=== PATIENT | male | born 1990 | race Caucasian/White ===

== ENCOUNTER 2018-01-10 15:36 | Inpatient (IN) | payer OTHER ==
[~2018-01-10] VITALS: Ht 172.7 cm; Wt 100.0 kg
[~2018-01-10 15:36] MED LIST: CEFAZOLIN INJ 2,000 MG in SODIUM CHLORIDE 0.9% INJ 100 ML IV SCH; DEXAMETHASONE SOD PHOS 4 MG/ML VIAL IV ONE; GLYCOPYRROLATE 1 MG/5 ML SYRINGE IV PUSH ONE; LIDOCAINE HCL 1% PF 5 ML SYRINGE OTHER ONE; MORPHINE SULFATE 4 MG/ML INJ IV PUSH ONE; ONDANSETRON HCL 4 MG/2 ML VIAL IV ONE; PHENYLEPH/NS 1000 MCG/10 ML SYR IV ONE; PROPOFOL 200 MG/20 ML AMP IV ONE; SUCCINYLCHOLINE CHLORIDE 100 MG/5 ML SYRINGE IV PUSH ONE; ceFAZolin INJ 1,000 MG VIAL IV ONE; ePHEDrine/NS 25 MG/5 ML SYRINGE IV ONE
[2018-01-10] MEDS ORDERED: IOHEXOL 350 MG/ML 10 ML VIAL (for RAD DIAG) IVCONTRAST ONE (15:37)
[2018-01-10] MEDS ORDERED: ceFAZolin 2 GM PREMIX 50 ML ONE (15:42)
[2018-01-10] MEDS ORDERED: PROPOFOL 500 MG/50 ML INJ 50 ML ONE (15:48)
[2018-01-10] MEDS ORDERED: LIDOCAINE HCL 1% PF 30 ML VIAL ONE (15:54)
[2018-01-10 16:00] VITALS: O2SAT 96
[2018-01-10 16:19] VITALS: O2SAT 98
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
[2018-01-10 16:40] VITALS: BP 108/55; PULSE 76; RESP 18; O2SAT 100; O2SAT 97
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
[2018-01-10 16:45] LABS: AUTOMATED NEUTROPHIL # 8.4 TH/MM3 (1.8-7.7); BASOPHIL % 0.2 % (0.0-2.0); EOSINOPHIL # 0.1 TH/MM3 (0-0.4); EOSINOPHIL % 0.8 % (0.0-4.0); HEMOGLOBIN 13.9 GM/DL (13.0-17.0); LYMPH % 29.5 % (9.0-44.0); LYMPHOCYTE # 3.9 TH/MM3 (1.0-4.8); MEAN CELL VOLUME 85.9 FL (80.0-100.0); MEAN CORPUSCULAR HEMOGLOBIN 29.9 PG (27.0-34.0); MEAN CORPUSCULAR HGB CONC 34.8 % (32.0-36.0); MEAN PLATELET VOLUME 9.5 FL (7.0-11.0); MONO % 6.2 % (0.0-8.0); MONOCYTE # 0.8 TH/MM3 (0-0.9); NEUT % 63.3 % (16.0-70.0); PLATELET COUNT 304 TH/MM3 (150-450); RED BLOOD COUNT 4.65 MIL/MM3 (4.50-5.90); RED CELL DISTRIBUTION WIDTH 13.2 % (11.6-17.2); WHITE BLOOD COUNT 13.3 TH/MM3 (4.0-11.0)
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
[2018-01-10 16:56] LABS: INTERNATIONAL NORMALIZED RATIO 1.1 RATIO; PROTHROMBIN TIME - PATIENT 11.4 SEC (9.8-11.6)
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
[2018-01-10] MEDS ORDERED: SODIUM CHLORIDE 0.9% FLUSH 10 ML FLUSH IV FLUSH PRN (17:30)
--- NOTE | 2018-01-10 17:41 | PD ---
Physical Exam Date Seen by Provider: Jan 10, 2018 Time Seen by Provider: 17:41 Narrative For full history and physical examination please see previous providers note. I was asked to repair laceration to patient's scalp. Data Data Last Documented VS Vital Signs Date Time Temp Pulse Resp B/P (MAP) Pulse Ox O2 Delivery O2 Flow Rate FiO2 01/10/18 16:19 98 15.00 01/10/18 16:00 100 Orders Orders Fentanyl Inj (Fentanyl Inj) (01/10/18 15:41) Type And Screen (01/10/18 15:42) Cefazolin 2 Gm Premix (Ancef 2 Gm Premix (01/10/18 15:42) Propofol 500 Mg/50 Ml Inj (Diprivan 500 (01/10/18 15:48) Lidocaine Pf 1% Inj (Xylocaine-Mpf 1% In (01/10/18 15:54) I-Stat Profile (01/10/18 15:45) Complete Blood Count With Diff (01/10/18 15:45) Prothrombin Time / Inr (Pt) (01/10/18 15:45) Act Partial Throm Time (Ptt) (01/10/18 15:45) Chest, Single Ap (01/10/18 15:45) Pelvis, Ap Only (Routine) (01/10/18 15:45) Ct Brain W/O Iv Contrast(Rout) (01/10/18 15:45) Ct Cerv Spine W/O Contrast (01/10/18 15:45) Ct Abd/Pel W Iv Contrast(Rout) (01/10/18 15:45) Ct Thorax/ Chest W Iv Contrast (01/10/18 15:45) Iv Access Insert/Monitor (01/10/18 15:45) Ecg Monitoring (01/10/18 15:45) Oximetry (01/10/18 15:45) Oxygen Administration (01/10/18 15:45) Humerus, One View (01/10/18 ) Forearm, One View (01/10/18 ) Elbow, One View (01/10/18 ) Femur, One View (01/10/18 ) Tibia/Fibula, One View (01/10/18 ) Iohexol 350 Inj (Omnipaque 350 Inj) (01/10/18 15:37) Red Blood Cells (Rbc) (01/10/18 15:39) Admit Order (Ed Use Only) (01/10/18 ) Labs Laboratory Tests Test 01/10/18 15:37 01/10/18 15:39 Bedside Hemoglobin 13.9 G/DL Bedside Hematocrit 41.0 % Bedside Sodium 144 MMOL/L Bedside Potassium 4.1 MMOL/L Bedside Chloride 106 MMOL/L Bedside Blood Urea Nitrogen 17 MG/DL Bedside Creatinine 1.2 MG/DL Bedside Glucose 124 MG/DL White Blood Count 13.3 TH/MM3 Red Blood Count 4.65 MIL/MM3 Hemoglobin 13.9 GM/DL Hematocrit 40.0 % Mean Corpuscular Volume 85.9 FL Mean Corpuscular Hemoglobin 29.9 PG Mean Corpuscular Hemoglobin Concent 34.8 % Red Cell Distribution Width 13.2 % Platelet Count 304 TH/MM3 Mean Platelet Volume 9.5 FL Neutrophils (%) (Auto) 63.3 % Lymphocytes (%) (Auto) 29.5 % Monocytes (%) (Auto) 6.2 % Eosinophils (%) (Auto) 0.8 % Basophils (%) (Auto) 0.2 % Neutrophils # (Auto) 8.4 TH/MM3 Lymphocytes # (Auto) 3.9 TH/MM3 Monocytes # (Auto) 0.8 TH/MM3 Eosinophils # (Auto) 0.1 TH/MM3 Basophils # (Auto) 0.0 TH/MM3 CBC Comment DIFF FINAL Differential Comment Prothrombin Time 11.4 SEC Prothromb Time International Ratio 1.1 RATIO Activated Partial Thromboplast Time 19.8 SEC [facility] Medical Record Reviewed: Yes Supervised Visit with PAUL: Yes Procedures Procedure Narrative LACERATION LOCATION: Forehead LENGTH: 4 cm NUMBER OF STITCHES/LIZZIE: 11 stitches REPAIR: The area of the laceration was prepped with Betadine and sterilely draped. The laceration was infiltrated with 1% lidocaine. The wound was copiously irrigated and explored without evidence of foreign body, tendon injury or neurovascular injury. The wound was closed using 4-0 Ethilon. This was a 1 layer repair. A sterile dressing was applied. The patient was advised to keep the dressing clean and dry. Patient tolerated the procedure well. Diagnosis Primary Impression: Femur fracture Narcisa Uriostegui [facility] Jan 10, 2018 17:41
[2018-01-10] MEDS ORDERED: SODIUM CHLOR 0.9% 1000 ML INJ 1,000 ML IV SCH (18:00)
[2018-01-10] MEDS ORDERED: ENALAPRILAT 1.25 MG/ML VIAL IV PUSH PRN (18:00)
[2018-01-10] MEDS ORDERED: ONDANSETRON HCL 4 MG/2 ML VIAL IV PUSH PRN (18:00)
[2018-01-10] MEDS ORDERED: MAGNESIUM HYDROXIDE SUSP 30 ML CUP PO PRN ×2 (18:00→21:45)
[2018-01-10] MEDS ORDERED: MORPHINE SULFATE 2 MG/ML SYRINGE IV PUSH PRN (18:00)
[2018-01-10] MEDS ORDERED: ACETAMINOPHEN/HYDROcodone 325 MG/5 MG TAB PO PRN ×2 (18:00)
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
[2018-01-10] MEDS: PANTOPRAZOLE SODIUM 40 MG VIAL IVP SCH (18:25)
[2018-01-10 18:32] VITALS: BP 112/74
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
[2018-01-10 18:45] VITALS: BP 126/69; PULSE 88; RESP 18; TEMP 97.7; O2SAT 99
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
[2018-01-10] MEDS ORDERED: GENTAMICIN SULFATE 80 MG/2 ML VIAL ONE ×2 (19:26→20:36)
[2018-01-10] MEDS ORDERED: ceFAZolin INJ 1,000 MG VIAL IV ONE (20:24)
[2018-01-10] MEDS ORDERED: METOPROLOL TARTRATE 25 MG TAB PO PRN (20:30)
[2018-01-10] MEDS ORDERED: POVIDONE IODINE 5% (ANTISEPSIS KIT) 4 APPLICATIONS EACH NARE PRN (20:30)
[2018-01-10] MEDS ORDERED: CHLORHEXIDINE GLUCONATE 2 % 1 PACK (2 CLOTHS) TOPICAL PRN (20:30)
[2018-01-10] MEDS ORDERED: LACTATED RINGER'S 1000 ML IV PRN (20:30)
[2018-01-10] MEDS ORDERED: SODIUM CHLORID 0.9% 500 ML IV PRN (20:30)
[2018-01-10] MEDS ORDERED: DOCUSATE SODIUM 100 MG CAP PO SCH (21:00)
[2018-01-10] MEDS ORDERED: CEFAZOLIN INJ 2,000 MG in SODIUM CHLORIDE 0.9% INJ 100 ML IV ONE (21:15)
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
[2018-01-10] MEDS ORDERED: DO NOT ADM ANY ANTICOAGULANT DRUGS PRN (21:44)
[2018-01-10] MEDS ORDERED: Post-op Orders (for Pharmacy) XX ONE (21:45)
[2018-01-10] MEDS ORDERED: ONDANSETRON HCL 4 MG/2 ML VIAL IVP PRN (21:45)
[2018-01-10] MEDS ORDERED: ACETAMINOPHEN/HYDROcodone 325 MG/10 MG TAB PO PRN ×2 (21:45)
[2018-01-10] MEDS ORDERED: MORPHINE SULFATE 8 MG/ML INJ IV PUSH PRN (21:45)
[2018-01-10] MEDS ORDERED: MORPHINE SULFATE 30 MG/30 ML PCA IV SCH (21:45)
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
[2018-01-10] MEDS: LACTATED RINGER'S 1000 ML INJ 1,000 ML IV SCH (22:00)
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
--- NOTE | 2018-01-10 22:47 | HHI.PR ---
Immediate Post Op Note Procedure Date: Jan 10, 2018 Pre Op Diagnosis: 1. Open fracture right proximal first metatarsal, grade 3c 2. Extensive degloving injury right plantar and medial foot Post Op Diagnosis: same Surgeon: Ria Tavares DPM Ribbing Machine Operator(s): Staff Procedure: Irrigation and debridement right foot open fracture Findings: Consistent with diagnosis. Extensive degloving of entire plantar foot from plantar 1st metatarsal head area to plantar medial heel, extending across entire plantar surface of foot with plantar fat pad entirely from plantar fascia. Major arteries preserved with palpable pedal pulses. Minimal debris noted, small gee flecks throughout. Excisional debridement of nonviable tendon, muscle, and subcutaneous tissue performed with rongeur, curette, and # 15 blade down to level of tendon and bone. All tissue appears viable at this time and bleeds readily. Fracture palpable/visible to medial base of 1st metatarsal area. Wound measurements approximately 18cm x 8 cm x 10cm depth, pocket to plantar foot. Irrigation with 6L normal saline with gentamicin, followed by approximation with 2-0 nylon suture, 4x4, abd x 3, cast padding, short posterior splint, nena bandage. Additional Information: Culture taken. Plan to OR again Monday p.m. for another wash out and culture. Possible wound vac dressing at next procedure. Will consider external fixation as definitive treatment to continue to monitor soft tissues as they demarcate to determine if foot will be salvageable. Complications: none Specimen(s) removed: 1. culture right foot Estimated blood loss: 50mL Anesthesia: General Drains: None IVF Tourniquet time (min at mmHg) 26 minutes right calf @250mmHg Patient to: PACU Patient Condition: Good Date/Time of Procedure: SEE SURGICAL CARE RECORD Ria Tavares DPM Jan 10, 2018 22:47
[2018-01-10] MEDS ORDERED: MORPHINE SULFATE 4 MG/ML INJ ONE (22:51)
[2018-01-11] VITALS: BP 131/74; PULSE 119; RESP 19; TEMP 98.2; O2SAT 98
[2018-01-11] MEDS ORDERED: ceFAZolin 2 GM PREMIX 50 ML IV SCH
[2018-01-11 04:00] VITALS: BP 143/70; PULSE 113; RESP 19; TEMP 98.2; O2SAT 98
[2018-01-11] MEDS: PCA - TOTAL MG MORPHINE DELIVERED PER SHIFT SCH ×2 (06:00→22:00)
[2018-01-11] MEDS: METHOCARBAMOL 500 MG TAB PO SCH ×3 (06:15→22:42)
[2018-01-11] MEDS ORDERED: MORPHINE SULFATE 8 MG/ML INJ IV PUSH PRN (06:15)
--- NOTE | 2018-01-11 06:27 | RADRPT ---
EXAM DATE/TIME: 01/11/2018 06:11 [facility] COMPARISON: CT THORAX W CONTRAST, January 10, 2018, 16:15. INDICATIONS : Shortness of breath. MEDICAL HISTORY : None. SURGICAL HISTORY : None. ENCOUNTER: Subsequent ACUITY: 2 days PAIN SCORE: 0/10 LOCATION: Bilateral chest FINDINGS: Right upper lobe consolidation/contusion appears at least slightly improved in the interim. Lungs oth erwise appear clear. No pleural effusion. No pneumothorax. Heart size stable, normal. CONCLUSION: Improved right upper lobe consolidation. Andrei Carey MD on January 11, 2018 at 6:25 Board Certified Radiologist. This report was verified electronically.
[2018-01-11 06:41] LABS: AUTOMATED NEUTROPHIL # 9.4 TH/MM3 (1.8-7.7); BASOPHIL % 0.1 % (0.0-2.0); HEMATOCRIT 26.2 % (39.0-51.0); LYMPH % 4.6 % (9.0-44.0); LYMPHOCYTE # 0.5 TH/MM3 (1.0-4.8); MEAN CELL VOLUME 86.2 FL (80.0-100.0); MEAN CORPUSCULAR HEMOGLOBIN 29.7 PG (27.0-34.0); MEAN CORPUSCULAR HGB CONC 34.5 % (32.0-36.0); MEAN PLATELET VOLUME 9.7 FL (7.0-11.0); MONO % 9.7 % (0.0-8.0); MONOCYTE # 1.1 TH/MM3 (0-0.9); NEUT % 85.6 % (16.0-70.0); PLATELET COUNT 213 TH/MM3 (150-450); RED BLOOD COUNT 3.04 MIL/MM3 (4.50-5.90); RED CELL DISTRIBUTION WIDTH 12.8 % (11.6-17.2)
[2018-01-11 07:19] LABS: AST (GOT) 74 U/L (15-37); CHLORIDE 109 MEQ/L (98-107); CREATININE 1.04 MG/DL (0.60-1.30); GLOMERULAR FILTRATION RATE 62 ML/MIN (>89); GLUCOSE,RANDOM 153 MG/DL (74-106); SODIUM (NA) 140 MEQ/L (136-145)
[2018-01-11 07:23] LABS: ALBUMIN 2.9 GM/DL (3.4-5.0); ALKALINE PHOSPHATASE 44 U/L (45-117); ALT (GPT) 31 U/L (12-78); BICARBONATE 22.5 MEQ/L (21.0-32.0); BLOOD UREA NITROGEN 11 MG/DL (7-18); CALCIUM 7.5 MG/DL (8.5-10.1); TOTAL BILIRUBIN ADULT 0.4 MG/DL (0.2-1.0); TOTAL PROTEIN 5.2 GM/DL (6.4-8.2)
[2018-01-11 08:00] VITALS: BP 113/69; PULSE 116; RESP 19; TEMP 98.4; O2SAT 98
[2018-01-11] MEDS: DOCUSATE SODIUM 50 MG/SENNA 8.6 MG TAB PO SCH ×2 (09:00→22:42)
[2018-01-11] MEDS ORDERED: DOCUSATE SODIUM 50 MG/SENNA 8.6 MG TAB PO SCH (09:00)
[2018-01-11] MEDS: LACTATED RINGER'S 1000 ML INJ 1,000 ML IV SCH ×2 (09:00→17:48)
[2018-01-11] MEDS: MULTIVITAMINS/MINERALS THERAPEUTIC TAB PO SCH (09:23)
[2018-01-11] MEDS: CALCIUM/VITAMIN D 250 MG/125 U TAB PO SCH ×3 (09:24→17:36)
[2018-01-11] MEDS: LIDOCAINE HCL 5% PATCH T-DERMAL SCH (09:28)
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
[2018-01-11 11:42] VITALS: BP 150/72; PULSE 116; RESP 19; TEMP 98.4; O2SAT 94
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
[2018-01-11] MEDS: PANTOPRAZOLE SODIUM 40 MG VIAL IVP SCH (17:36)
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
[2018-01-11 20:00] VITALS: BP 122/64; PULSE 110; RESP 18; TEMP 99.2; O2SAT 94
[2018-01-11] MEDS: REMOVE OLD LIDOCAINE PATCH T-DERMAL SCH (21:00)
--- NOTE | 2018-01-11 22:10 | PD.POD ---
Subjective Podiatric Problems s/p Right foot open fracture with degloving injury irrigation and debridement Dr Tavares Past Med/Surg/Social History Social History Smoking Status: Never Smoker Objective Vital Signs Vital Signs Date Time Temp Pulse Resp B/P (MAP) Pulse Ox O2 Delivery O2 Flow Rate FiO2 01/11/18 20:00 99.2 110 18 122/64 (83) 94 01/11/18 11:42 98.4 116 19 150/72 (98) 94 01/11/18 08:00 98.4 116 19 113/69 (84) 98 01/11/18 06:00 16 01/11/18 04:00 98.2 113 19 143/70 (94) 98 01/11/18 00:00 98.2 119 19 131/74 (93) 98 01/10/18 23:58 12 01/10/18 23:30 110 19 135/83 (100) 99 Nasal Cannula 2 01/10/18 23:15 111 19 124/84 (97) 99 Nasal Cannula 2 01/10/18 23:00 96 19 118/73 (88) 99 Nasal Cannula 2 01/10/18 22:45 97.6 103 15 121/71 (88) 99 Nasal Cannula 2 Coded Allergies: No Known Allergies (Unverified , 01/10/18) Exam-Podiatry Remarks Performed secondary survey to bilateral lower extremities. Neurovascularly intact bilaterally. No pain to leg/foot/ankle left. Ankle pain right, possibly referred pain. Assessment & Plan A/P s/p Right foot open fracture with degloving injury irrigation and debridement Dr Tavares To OR for repeat I&D tomorrow. NPO after [address] Right foot/ankle Ria Tavares DPM Jan 11, 2018 22:10
[2018-01-11] MEDS ORDERED: PHENOL 1.4% SOLN 180 ML BTL OROPHARYNG PRN (23:15)
[2018-01-11] MEDS ORDERED: ACETAMINOPHEN 325 MG TAB PO PRN (23:15)
[2018-01-12] VITALS (8 sets, daily range): BP systolic 113–135; BP diastolic 58–75; PULSE 95–119; RESP 16–20; TEMP 98.7–99.7; O2SAT 93–96
[2018-01-12] MEDS: LACTATED RINGER'S 1000 ML INJ 1,000 ML IV SCH ×3 (04:00→23:28)
[2018-01-12 05:04] LABS: HEMOGLOBIN 7.1 GM/DL (13.0-17.0)
[2018-01-12 05:27] LABS: HEMATOCRIT 20.8 % (39.0-51.0)
[2018-01-12] MEDS: METHOCARBAMOL 500 MG TAB PO SCH ×3 (06:44→21:00)
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
[2018-01-12] MEDS: LIDOCAINE HCL 5% PATCH T-DERMAL SCH (08:51)
[2018-01-12] MEDS: MULTIVITAMINS/MINERALS THERAPEUTIC TAB PO SCH (08:51)
[2018-01-12] MEDS: DOCUSATE SODIUM 50 MG/SENNA 8.6 MG TAB PO SCH ×2 (08:51→20:59)
[2018-01-12] MEDS: CALCIUM/VITAMIN D 250 MG/125 U TAB PO SCH ×3 (08:51→18:00)
[2018-01-12] MEDS ORDERED: LIDOCAINE HCL 1% PF 5 ML SYRINGE OTHER ONE (12:00)
[2018-01-12] MEDS ORDERED: ceFAZolin INJ 1,000 MG VIAL IV ONE (12:00)
[2018-01-12] MEDS ORDERED: PROPOFOL 200 MG/20 ML AMP IV ONE (12:00)
[2018-01-12] MEDS ORDERED: ONDANSETRON HCL 4 MG/2 ML VIAL IV ONE (12:00)
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
[2018-01-12] MEDS: ACETAMINOPHEN 1000 MG/100 ML 100 ML IV SCH ×3 (14:00→22:05)
[2018-01-12] MEDS: PCA - TOTAL MG MORPHINE DELIVERED PER SHIFT SCH ×3 (14:00→20:59)
[2018-01-12] MEDS: GABAPENTIN 300 MG CAP PO SCH ×2 (14:00→18:00)
[2018-01-12] MEDS: ENOXAPARIN SODIUM 30 MG/0.3 ML SYRINGE SQ SCH (14:40)
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
[2018-01-12] MEDS: ACETAMINOPHEN/HYDROcodone 325 MG/10 MG TAB PO PRN ×2 (15:36→23:15)
[2018-01-12] MEDS: PANTOPRAZOLE SODIUM 40 MG VIAL IVP SCH (17:30)
[2018-01-12] MEDS ORDERED: GENTAMICIN SULFATE 80 MG/2 ML VIAL ONE ×2 (20:28→20:34)
[2018-01-12] MEDS: REMOVE OLD LIDOCAINE PATCH T-DERMAL SCH ×2 (20:59→21:00)
--- NOTE | 2018-01-12 21:23 | HHI.PR ---
Immediate Post Op Note Procedure Date: Jan 12, 2018 Pre Op Diagnosis: 1. Open fracture right proximal first metatarsal, 2nd metatarsal, 3rd metatarsal , grade 3c 2. Extensive degloving injury right plantar and medial foot Post Op Diagnosis: Same Surgeon: Ria Tavares DPM [employer] Supervisor(s): Staff Procedure: Irrigation and debridement right foot open fracture Application wound vac Findings: Consistent with diagnosis. Extensive degloving of entire plantar foot from plantar 1st metatarsal head area to plantar medial heel, extending across entire plantar surface of foot with plantar fat pad entirely from plantar fascia. Some degloving noted to to medial rearfoot extending to medial achilles tendon area. Small patch of necrotic skin noted today just proximal to medial malleolus. Major arteries preserved with palpable pedal pulses. Capillary refill intact to entire flap and digits today. Very little residual debris noted, a few small gee flecks found. Appeared as through all debris removed today. Excisional debridement of nonviable tendon, muscle, and subcutaneous tissue performed with rongeur, curette, and #15 blade down to level of tendon and bone. All tissue appears viable at this time and bleeds readily. Fracture palpable/visible to medial base of 1st metatarsal area. Wound measurements approximately 18cm x 8 cm x 10cm depth, pocket to plantar foot. Irrigation with 9L normal saline with gentamicin, followed by approximation with 2-0 nylon suture, small granufoam wound vac, short posterior splint, nena bandage. Additional Information: 80mg Gentamicin IV 2g Ancef IV Culture taken. Plan to OR again Monday morning for another wash out and possible ORIF vs external fixation of metatarsal fractures/medial lisfranc fracture. Will likely continue wound vac. Soft tissues currently appear viable and limb salvageable. Complications: None Specimen(s) removed: 1. culture right foot Estimated blood loss: 50mL Anesthesia: General Drains: None, Other (wound vac) Tourniquet time (min at mmHg) n/a Patient to: PACU Patient Condition: Good Date/Time of Procedure: SEE SURGICAL CARE RECORD Ria Tavares DPM Jan 12, 2018 21:23
[2018-01-12] MEDS ORDERED: DO NOT ADM ANY ANTICOAGULANT DRUGS PRN (21:25)
[2018-01-12] MEDS ORDERED: MIDAZOLAM HCL 2 MG/2 ML VIAL ONE (21:27)
[2018-01-12] MEDS ORDERED: ceFAZolin 2 GM PREMIX 50 ML IV SCH (22:00)
[2018-01-12] MEDS ORDERED: *morphine SULFATE 4 MG/ML PERIprocedure ONLY ONE (22:08)
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
[2018-01-12] MEDS: diphenhydrAMINE HCL 25 MG CAP PO PRN (23:55)
[2018-01-13] VITALS (7 sets, daily range): BP systolic 114–142; BP diastolic 58–84; PULSE 88–102; RESP 16–18; TEMP 98.4–98.9; O2SAT 94–99
[2018-01-13] MEDS: ACETAMINOPHEN 1000 MG/100 ML 100 ML IV SCH ×3 (02:10→20:07)
[2018-01-13] MEDS: ENOXAPARIN SODIUM 30 MG/0.3 ML SYRINGE SQ SCH ×2 (02:25→15:00)
[2018-01-13] MEDS: ACETAMINOPHEN/HYDROcodone 325 MG/10 MG TAB PO PRN ×3 (02:47→11:05)
[2018-01-13] MEDS: PCA - TOTAL MG MORPHINE DELIVERED PER SHIFT SCH (04:53)
[2018-01-13] MEDS: ceFAZolin 2 GM PREMIX 50 ML IV SCH ×2 (04:53→13:00)
[2018-01-13] MEDS: GENTAMICIN INJ 80 MG in SODIUM CHLORIDE 0.9% INJ 100 ML IV SCH ×3 (04:53→21:05)
[2018-01-13] MEDS ORDERED: GENTAMICIN 80 MG PREMIX 100 ML IV SCH (05:00)
[2018-01-13 05:03] LABS: AUTOMATED NEUTROPHIL # 3.9 TH/MM3 (1.8-7.7); BASOPHIL % 0.1 % (0.0-2.0); EOSINOPHIL # 0.1 TH/MM3 (0-0.4); HEMATOCRIT 21.5 % (39.0-51.0); HEMOGLOBIN 7.3 GM/DL (13.0-17.0); LYMPHOCYTE # 1.5 TH/MM3 (1.0-4.8); MEAN CELL VOLUME 84.8 FL (80.0-100.0); MEAN CORPUSCULAR HEMOGLOBIN 28.8 PG (27.0-34.0); MEAN PLATELET VOLUME 9.1 FL (7.0-11.0); MONOCYTE # 0.7 TH/MM3 (0-0.9); NEUT % 62.9 % (16.0-70.0); PLATELET COUNT 128 TH/MM3 (150-450); RED BLOOD COUNT 2.54 MIL/MM3 (4.50-5.90); RED CELL DISTRIBUTION WIDTH 13.3 % (11.6-17.2); WHITE BLOOD COUNT 6.2 TH/MM3 (4.0-11.0)
[2018-01-13 05:27] LABS: BICARBONATE 31.9 MEQ/L (21.0-32.0); CALCIUM 7.5 MG/DL (8.5-10.1); CREATININE 0.82 MG/DL (0.60-1.30)
[2018-01-13] MEDS ORDERED: POVIDONE IODINE 5% (ANTISEPSIS KIT) 4 APPLICATIONS EACH NARE PRN ×2 (05:30→22:30)
[2018-01-13] MEDS ORDERED: CHLORHEXIDINE GLUCONATE 2 % 1 PACK (2 CLOTHS) TOPICAL PRN ×2 (05:30→22:30)
[2018-01-13] MEDS ORDERED: SODIUM CHLORID 0.9% 500 ML IV PRN ×2 (05:30→22:30)
[2018-01-13] MEDS ORDERED: LACTATED RINGER'S 1000 ML IV PRN ×2 (05:30→22:30)
[2018-01-13] MEDS: METHOCARBAMOL 500 MG TAB PO SCH ×4 (06:00→22:11)
[2018-01-13] MEDS ORDERED: SODIUM CHLOR 0.9% 250 ML INJ 250 ML IV ONE (06:15)
[2018-01-13] MEDS: GABAPENTIN 300 MG CAP PO SCH (07:48)
[2018-01-13] MEDS: DOCUSATE SODIUM 50 MG/SENNA 8.6 MG TAB PO SCH ×2 (07:48→20:11)
[2018-01-13] MEDS: CALCIUM/VITAMIN D 250 MG/125 U TAB PO SCH ×3 (07:48→18:00)
[2018-01-13] MEDS: MULTIVITAMINS/MINERALS THERAPEUTIC TAB PO SCH (07:49)
[2018-01-13] MEDS ORDERED: GENTAMICIN SULFATE 80 MG/2 ML VIAL ONE (08:03)
[2018-01-13] MEDS ORDERED: BUPIVACAINE/EPINEPHRINE 0.25% 50 ML VIAL ONE (08:10)
[2018-01-13] MEDS ORDERED: LIDOCAINE HCL 1% PF 5 ML SYRINGE OTHER ONE (12:00)
[2018-01-13] MEDS ORDERED: ONDANSETRON HCL 4 MG/2 ML VIAL IV ONE (12:00)
[2018-01-13] MEDS ORDERED: DEXAMETHASONE SOD PHOS 4 MG/ML VIAL IV ONE (12:00)
[2018-01-13] MEDS ORDERED: PROPOFOL 200 MG/20 ML AMP IV ONE (12:00)
[2018-01-13] MEDS ORDERED: LACTATED RINGER'S 1000 ML INJ 1,000 ML IV ONE (12:00)
[2018-01-13] MEDS ORDERED: *morphine SULFATE 4 MG/ML PERIprocedure ONLY ONE (12:53)
[2018-01-13] MEDS: GABAPENTIN 400 MG CAP PO SCH ×2 (13:00→18:00)
--- NOTE | 2018-01-13 14:32 | PD.POD ---
Subjective Podiatric Problems s/p Right foot open fracture with degloving injury irrigation and debridement Dr Tavares s/p Right foot open fracture with degloving injury irrigation and debridement Dr Tavares Patient down for OR with ortho now and not in room Past Med/Surg/Social History Social History Smoking Status: Never Smoker Objective Vital Signs Vital Signs Date Time Temp Pulse Resp B/P (MAP) Pulse Ox O2 Delivery O2 Flow Rate FiO2 01/13/18 12:45 98.1 96 16 125/72 (89) 95 01/13/18 12:45 Nasal Cannula 3 01/13/18 09:15 98.7 95 16 125/68 99 01/13/18 09:00 98.8 94 18 129/58 95 01/13/18 08:00 98.8 94 18 129/58 (81) 95 01/13/18 07:31 Nasal Cannula 4.00 01/13/18 04:00 98.4 90 18 114/63 (80) 98 01/13/18 00:15 98.4 102 18 122/58 (79) 97 01/12/18 22:45 98.5 102 16 134/69 (90) 97 Nasal Cannula 4 01/12/18 22:30 103 17 138/71 (93) 96 Nasal Cannula 4 01/12/18 22:15 102 17 140/75 (96) 96 Nasal Cannula 4 01/12/18 22:00 101 16 154/83 (106) 100 Simple Mask 6 01/12/18 21:45 101 16 150/81 (104) 99 Simple Mask 6 01/12/18 21:30 103 16 149/77 (101) 97 Simple Mask 6 01/12/18 21:23 99.8 103 20 140/74 (96) 98 Simple Mask 8 01/12/18 16:00 99.5 105 16 133/72 (92) 96 Coded Allergies: No Known Allergies (Unverified , 01/10/18) Other Results Microbiology Date/Time Source Procedure Growth Status 01/12/18 20:58 Wound Foot Fungal Smear - Final NO FUNGAL ELEMENTS SEEN. Resulted 01/12/18 20:58 Wound Foot Fungal Culture Pending Resulted Operative cultures from 01/10 and 01/12 show no growth so far. Assessment & Plan A/P s/p Right foot open fracture with degloving injury irrigation and debridement Dr Tavares s/p right foot open fracture with degloving injury irrigation and debridement Dr Tavares To OR repeat I&D right foot with ORIF right foot vs external fixation right foot vs both tomorrow [address] external fixator to reduce any motion of flap during as to not disturb healing during patient transfers/PT/etc. NPO after midnight tonight Right nondisplaced medial malleolus fracture Nonweightbearing right lower extremity Will be in short posterior splint for extended period of time Ria Tavares DPM Jan 13, 2018 14:32
[2018-01-13 15:01] LABS: AUTOMATED NEUTROPHIL # 5.9 TH/MM3 (1.8-7.7); BASOPHIL % 0.1 % (0.0-2.0); EOSINOPHIL # 0.2 TH/MM3 (0-0.4); EOSINOPHIL % 2.4 % (0.0-4.0); HEMOGLOBIN 8.9 GM/DL (13.0-17.0); LYMPH % 18.7 % (9.0-44.0); LYMPHOCYTE # 1.6 TH/MM3 (1.0-4.8); MEAN CELL VOLUME 85.2 FL (80.0-100.0); MEAN CORPUSCULAR HEMOGLOBIN 30.2 PG (27.0-34.0); MEAN CORPUSCULAR HGB CONC 35.4 % (32.0-36.0); MONO % 8.7 % (0.0-8.0); MONOCYTE # 0.7 TH/MM3 (0-0.9); NEUT % 70.1 % (16.0-70.0); PLATELET COUNT 157 TH/MM3 (150-450); RED BLOOD COUNT 2.94 MIL/MM3 (4.50-5.90); RED CELL DISTRIBUTION WIDTH 13.1 % (11.6-17.2); WHITE BLOOD COUNT 8.4 TH/MM3 (4.0-11.0)
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
[2018-01-13] MEDS ORDERED: BUPIVACAINE HCL PF 0.25% 30 ML VIAL ONE (15:57)
[2018-01-13] MEDS ORDERED: MIDAZOLAM HCL 2 MG/2 ML VIAL ONE (16:57)
--- NOTE | 2018-01-13 17:34 | RADRPT ---
EXAM DATE/TIME: 01/13/2018 16:49 [facility] COMPARISON: No previous studies available for comparison. INDICATIONS : ORIF left hand, 1st metacarpal. MEDICAL HISTORY : None. SURGICAL HISTORY : None. ENCOUNTER: Subsequent ACUITY: 1 day PAIN SCORE: Non-responsive. LOCATION: Left Hand, 1st metacarpal. FINDINGS: Examination of the first digit of the left hand demonstrates screw fixation of the proximal first met acarpal. Normal alignment. No complications identified. CONCLUSION: 1. Screw fixation of proximal first metacarpal. Jordan Ramirez MD on January 13, 2018 at 17:30 Board Certified Radiologist. This report was verified electronically.
[2018-01-13] MEDS ORDERED: DO NOT ADM ANY ANTICOAGULANT DRUGS PRN (17:45)
--- NOTE | 2018-01-13 19:26 | PD.OP ---
cc: Дмитрий Deal Jr., MD Operative Report Date of Surgery: Jan 13, 2018 Preoperative Diagnosis: Left Cohen intra-articular fracture of the base of the first metacarpal. Postoperative Diagnosis: Same Procedure: Open reduction internal fixation left first metacarpal Anesthesia: General Surgeon: Дмитрий Deal Dietetic Tech(s): CAROLINA Holden The surgical procedure was assisted by my Advanced Registered Nurse Practitioner. My CLOTH PRINTING INSPECTOR presence was necessary throughout this case for the manipulation and positioning of the surgical extremity. My CLOTH PRINTING INSPECTOR was assisting me throughout the duration of this procedure. The skill set of an Advance Registered Nurse Practitioner was medically necessary to complete this procedure. During the surgical case, the surgical orderly was working at the back table and the Advance Registered Nurse Practitioner was directly assisting me. Resident Surgeon: None Operation and Findings: INDICATION FOR PROCEDURE Patient was seen and evaluated preoperatively and found to have a LEFT intra- articular closed displaced fracture of the base of the first metacarpal Cohen type. Disciussion of risk and benefits including nunion, avascular necrosis, bleeding, infection, injury to arteries, nerves, and blood vessels, weakness and numbness of hand, and tendon rupture. Informed consent was obtained. Patient received IV antibiotics prior to incision. Timeout procedure was performed. Operative extremity was prepped with alcohol followed by Hibiclens and draped usual sterile fashion and placed on an arm table. Patient position supine. A volar approach to the CMC joint was used. A hockey- stick shaped incision. Sharp dissection taken down through the skin and subcutaneous tissue identifying and protecting the digital neurovascular bundle and collateral ligament. Arthrotomy was performed to allow direct reduction of the articular surface. The Fracture was identified and bone fragments were cleaned. Pointed reduction clamp was used to reduce the fracture and this was confirmed under fluoroscopy. A K wire was used to temporarily maintain fixation. After adequate reduction was confirmed under fluoroscopy the fracture was fixed with 2 x 2.0 millimeter screws in lag screw fashion. Placement of the screw was confirmed by live fluoroscopy. Direct visualization of the articular surface confirmed adequate reduction, congruency and compression at the articular surface. Tourniquet was released. Wound was thoroughly irrigated. The capsule was closed with 4-0 Vicryl. The wound was closed with 3- 0 Vicryl and 2-0 nylon at the skin. Sterile dressing was applied and the patient was placed in a well-padded thumb spica splint. He will be converted to a thumb spica cast on the floor in 1-2 days. There were no complications. Patient extubated and transferred to PACU in stable condition. POSTP-OP PLAN OF ACTIVITY Antibiotics: ancef Antiocoagulation: None Weight bearing status: NWB in splint. Dressing: Do not remove splints Dispo: will follow Дмитрий Deal Jr., MD Jan 13, 2018 19:26
[2018-01-13] MEDS ORDERED: ONDANSETRON HCL 4 MG/2 ML VIAL IV PUSH PRN (19:30)
[2018-01-13] MEDS ORDERED: KETOROLAC TROMETHAMINE 30 MG/ML (IVP) VIAL IVP ONE (19:30)
[2018-01-13] MEDS ORDERED: MORPHINE SULFATE 8 MG/ML INJ IV PUSH PRN (19:30)
[2018-01-13] MEDS ORDERED: SODIUM CHLORIDE 0.9% FLUSH 10 ML FLUSH IV FLUSH PRN (19:30)
[2018-01-13] MEDS ORDERED: ZOLPIDEM TARTRATE 5 MG TAB PO PRN (19:30)
[2018-01-13] MEDS: SODIUM CHLORIDE 0.9% FLUSH 10 ML FLUSH IV FLUSH SCH (20:11)
[2018-01-13] MEDS: REMOVE OLD LIDOCAINE PATCH T-DERMAL SCH (20:11)
[2018-01-13] MEDS: DOCUSATE SODIUM 100 MG CAP PO SCH (20:11)
[2018-01-13] MEDS ORDERED: INSULIN HUMAN REGULAR 1,000 UNITS/10 ML VIAL SQ PRN (22:30)
[2018-01-13] MEDS ORDERED: METOPROLOL TARTRATE 25 MG TAB PO PRN (22:30)
[2018-01-14] MEDS: diphenhydrAMINE HCL 25 MG CAP PO PRN
[2018-01-14 01:05] VITALS: BP 131/86; PULSE 90; RESP 15; TEMP 97.9; O2SAT 94
[2018-01-14] MEDS: ACETAMINOPHEN 1000 MG/100 ML 100 ML IV SCH ×4 (02:15→20:47)
[2018-01-14 03:45] VITALS: BP 120/71; PULSE 75; RESP 17; TEMP 97.9; O2SAT 98
[2018-01-14] MEDS: oxyCODONE/ACETAMINOPHEN 5 MG/325 MG TAB PO PRN ×4 (03:57→21:41)
[2018-01-14 04:19] LABS: AUTOMATED NEUTROPHIL # 7.4 TH/MM3 (1.8-7.7); BASOPHIL % 0.1 % (0.0-2.0); EOSINOPHIL % 0.1 % (0.0-4.0); HEMATOCRIT 26.7 % (39.0-51.0); HEMOGLOBIN 9.3 GM/DL (13.0-17.0); LYMPHOCYTE # 0.7 TH/MM3 (1.0-4.8); MEAN CORPUSCULAR HEMOGLOBIN 29.7 PG (27.0-34.0); MEAN PLATELET VOLUME 8.8 FL (7.0-11.0); MONO % 7.5 % (0.0-8.0); MONOCYTE # 0.7 TH/MM3 (0-0.9); NEUT % 84.3 % (16.0-70.0); PLATELET COUNT 179 TH/MM3 (150-450); RED BLOOD COUNT 3.14 MIL/MM3 (4.50-5.90); RED CELL DISTRIBUTION WIDTH 13.7 % (11.6-17.2); WHITE BLOOD COUNT 8.8 TH/MM3 (4.0-11.0)
[2018-01-14 04:39] LABS: BICARBONATE 29.9 MEQ/L (21.0-32.0); CALCIUM 7.9 MG/DL (8.5-10.1); CREATININE 0.7 MG/DL (0.60-1.30)
[2018-01-14] MEDS: GENTAMICIN INJ 80 MG in SODIUM CHLORIDE 0.9% INJ 100 ML IV SCH ×3 (05:00→21:42)
--- NOTE | 2018-01-14 05:37 | RADRPT ---
EXAM DATE/TIME: 01/14/2018 04:27 [facility] COMPARISON: CHEST SINGLE AP, January 11, 2018, 6:11. INDICATIONS : Pulmonary contusion. MEDICAL HISTORY : None. SURGICAL HISTORY : Tonsillectomy. ENCOUNTER: Subsequent ACUITY: 4 - 6 days PAIN SCORE: 0/10 LOCATION: Bilateral chest FINDINGS: A single view of the chest demonstrates the lungs to be symmetrically aerated without evidence of mas s, infiltrate or effusion. The cardiomediastinal contours are unremarkable. Osseous structures are intact. CONCLUSION: No acute disease. Jovanni Stevneson Jr., MD on January 14, 2018 at 5:35 Board Certified Radiologist. This report was verified electronically.
[2018-01-14] MEDS: METHOCARBAMOL 500 MG TAB PO SCH ×3 (06:00→20:47)
[2018-01-14] MEDS ORDERED: GENTAMICIN SULFATE 80 MG/2 ML VIAL ONE ×2 (07:47→08:37)
[2018-01-14 08:00] VITALS: BP 132/60; PULSE 89; RESP 16; TEMP 98.2; O2SAT 100
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
[2018-01-14] MEDS ORDERED: ceFAZolin INJ 1,000 MG VIAL IV ONE ×2 (08:23→12:00)
[2018-01-14] MEDS: DOCUSATE SODIUM 50 MG/SENNA 8.6 MG TAB PO SCH ×2 (09:00→20:47)
[2018-01-14] MEDS: DOCUSATE SODIUM 100 MG CAP PO SCH ×2 (09:00→20:47)
[2018-01-14] MEDS: LIDOCAINE HCL 5% PATCH T-DERMAL SCH (09:00)
[2018-01-14] MEDS: MULTIVITAMINS/MINERALS THERAPEUTIC TAB PO SCH (09:00)
[2018-01-14] MEDS: GABAPENTIN 400 MG CAP PO SCH ×3 (09:00→16:26)
[2018-01-14] MEDS: SODIUM CHLORIDE 0.9% FLUSH 10 ML FLUSH IV FLUSH SCH ×2 (09:00→20:47)
[2018-01-14] MEDS: CALCIUM/VITAMIN D 250 MG/125 U TAB PO SCH ×3 (09:00→16:26)
[2018-01-14] MEDS ORDERED: BUPIVACAINE HCL PF 0.25% 30 ML VIAL ONE (10:29)
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
[2018-01-14] MEDS ORDERED: MIDAZOLAM HCL 2 MG/2 ML VIAL ONE (11:22)
[2018-01-14] MEDS ORDERED: MORPHINE SULFATE 4 MG/ML INJ ONE (11:22)
[2018-01-14 12:00] VITALS: BP 137/79; PULSE 89; RESP 16; TEMP 98; O2SAT 98
[2018-01-14] MEDS ORDERED: PROPOFOL 200 MG/20 ML AMP IV ONE (12:00)
[2018-01-14] MEDS ORDERED: ROCURONIUM INJ 50 MG/5 ML SYRINGE IV PUSH ONE (12:00)
[2018-01-14] MEDS ORDERED: LACTATED RINGER'S 1000 ML INJ 2,000 ML IV ONE (12:00)
[2018-01-14] MEDS ORDERED: SUCCINYLCHOLINE CHLORIDE 100 MG/5 ML SYRINGE IV PUSH ONE (12:00)
[2018-01-14] MEDS ORDERED: ONDANSETRON HCL 4 MG/2 ML VIAL IV ONE (12:00)
[2018-01-14] MEDS ORDERED: DEXAMETHASONE SOD PHOS 4 MG/ML VIAL IV ONE (12:00)
--- NOTE | 2018-01-14 12:05 | HHI.PR ---
Immediate Post Op Note Procedure Date: Jan 14, 2018 Pre Op Diagnosis: 1. Open fracture right proximal first metatarsal, 2nd metatarsal, 3rd metatarsal , grade 3c 2. Extensive degloving injury right plantar and medial foot Post Op Diagnosis: Same Surgeon: Ria Tavares DPM Manager Pest(s): Staff Procedure: 1. Irrigation and debridement right foot open fracture 2. ORIF right 1st metatarsal fracture 3. Complex closure of degloving injury right foot with amniofix graft Findings: Consistent with diagnosis. Extensive degloving of entire plantar foot from plantar 1st metatarsal head area to plantar medial heel, extending across entire plantar surface of foot with plantar fat pad entirely from plantar fascia. Some degloving noted to to medial rearfoot extending to medial achilles tendon area. Fracture palpable/visible to medial base of 1st metatarsal area. C-arm utilized to reduce fracture and fixate with synthes locking plate/screws. Stressed lisfranc joint under c-arm and appears stable. Fractures to 2nd and 3rd metatarsal bases appear in acceptable alignment and left to heal nonoperatively. Small patch of necrotic skin remains just proximal to medial malleolus. No sign of infection present. There was large superficial blister noted to lateral calcaneus area with serous drainage. Deroofed bulla. No sign of infection. No devitalization of tissue present in that area. Major arteries preserved with palpable pedal pulses. Capillary refill intact to entire flap and digits today. No residual debris noted today. Irrigated with 9L normal saline with gentamicin. Made wound edges acute and graduated complex closure achieved with # 1 nylon and 2-0 nylon suture with amniofix 4cm x 6cm graft and amniofill graft in plantar wound prior to delayed primary closure. Wound measurements approximately 18cm x 8 cm x 10cm depth, pocket to plantar foot. Additional Information: Nonweightbearing right lower extremity in splint Keep dressing clean, dry, intact x 7 days. Weekly dressing change with xeroform, 4x4, abd, soft roll, nena with posterior splint reapplied. Will need to follow up in clinic in 1 week after discharge [address] Dr Tavares. Podiatry will change bandage prior to discharge. Continue IV antibiotics until discharge Complications: None Specimen(s) removed: none Estimated blood loss: 50mL Anesthesia: General, Local (30mL 0.5% marcaine plain) Drains: None IVF Tourniquet time (min at mmHg) No tourniquet utilized Patient to: PACU Patient Condition: Good Implant/Devices: SEE IMPLANT LOG (if applicable) Date/Time of Procedure: SEE SURGICAL CARE RECORD Ria Tavares DPM Jan 14, 2018 12:05
--- NOTE | 2018-01-14 12:32 | RADRPT ---
EXAM DATE/TIME: 01/14/2018 12:43 [place] COMPARISON: CT FOOT RIGHT W/O CONTRAST, January 12, 2018, 10:55. FOOT RIGHT COMPLETE ([id number]), January 14, 2018, 10 :00. INDICATIONS : Post operative for first metatarsal plate placement. MEDICAL HISTORY : None. SURGICAL HISTORY : None. ENCOUNTER: Initial ACUITY: 1 day PAIN SCORE: Non-responsive. LOCATION: Right foot. FINDINGS: Local views of the right foot were obtained and are AP and oblique in nature. This demonstrates place ment of a screw plate fixation device along the proximal first metatarsal with the fracture fragments now in anatomic alignment. Fine bony detail is partially obscured by casting material. There is a kwon btle nondisplaced fracture through the base of the second metatarsal. CONCLUSION: Status post open rigid internal fixation. Andrew Obrien MD on January 14, 2018 at 12:28 Board Certified Radiologist. This report was verified electronically.
--- NOTE | 2018-01-14 13:56 | OTSOAPIP ---
RECEIVED OCCUPATIONAL THERAPY ORDER. PATIENT OFF FLOOR FOR SURGERY. WILL FOLLOW UP WITH PATIENT TOMORROW. INTERDISCIPLINARY COMMUNICATION: REVIEWED ELECTRONIC MEDICAL RECORD Therapist: Montse Kapoor OTR/L Signature on file
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
[2018-01-14] MEDS ORDERED: LACTULOSE SYRUP 20 GM/30 ML CUP PO ONE (15:45)
[2018-01-14] MEDS: ENOXAPARIN SODIUM 30 MG/0.3 ML SYRINGE SQ SCH (16:24)
[2018-01-14 19:12] VITALS: BP 149/89; PULSE 93; RESP 16; TEMP 98; O2SAT 99
[2018-01-14] MEDS: REMOVE OLD LIDOCAINE PATCH T-DERMAL SCH (20:48)
[2018-01-15 00:11] VITALS: BP 131/72; PULSE 76; RESP 16; TEMP 98.6; O2SAT 97
[2018-01-15] MEDS: ACETAMINOPHEN 1000 MG/100 ML 100 ML IV SCH ×2 (02:02→08:43)
[2018-01-15] MEDS: oxyCODONE/ACETAMINOPHEN 5 MG/325 MG TAB PO PRN ×4 (02:10→15:18)
[2018-01-15 04:18] VITALS: BP 137/90; PULSE 80; RESP 18; TEMP 97.5; O2SAT 99
[2018-01-15] MEDS: GENTAMICIN INJ 80 MG in SODIUM CHLORIDE 0.9% INJ 100 ML IV SCH ×3 (04:53→21:12)
[2018-01-15] MEDS: METHOCARBAMOL 500 MG TAB PO SCH ×3 (04:54→21:12)
[2018-01-15 08:00] VITALS: BP 148/92; PULSE 70; RESP 18; TEMP 97.2; O2SAT 100
[2018-01-15] MEDS: CALCIUM/VITAMIN D 250 MG/125 U TAB PO SCH ×3 (08:42→17:44)
[2018-01-15] MEDS: DOCUSATE SODIUM 100 MG CAP PO SCH (08:42)
[2018-01-15] MEDS: GABAPENTIN 400 MG CAP PO SCH ×3 (08:42→17:32)
[2018-01-15] MEDS: DOCUSATE SODIUM 50 MG/SENNA 8.6 MG TAB PO SCH ×2 (08:42→20:24)
[2018-01-15] MEDS: MULTIVITAMINS/MINERALS THERAPEUTIC TAB PO SCH (08:42)
[2018-01-15] MEDS: LIDOCAINE HCL 5% PATCH T-DERMAL SCH ×2 (08:43→09:00)
[2018-01-15] MEDS: SODIUM CHLORIDE 0.9% FLUSH 10 ML FLUSH IV FLUSH SCH ×2 (08:44→20:28)
[2018-01-15 12:00] VITALS: BP 137/80; PULSE 90; RESP 18; TEMP 98.3; O2SAT 95
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
[2018-01-15 16:00] VITALS: BP 133/79; PULSE 82; RESP 18; TEMP 97.5; O2SAT 96
[2018-01-15] MEDS ORDERED: ACETAMIN 325 MG/BUTALBITAL 50 MG/CAFFEINE 40 MG TAB PO PRN (16:45)
[2018-01-15] MEDS ORDERED: oxyCODONE/ACETAMINOPHEN 5 MG/325 MG TAB PO PRN (17:00)
[2018-01-15] MEDS: ACETAMINOPHEN/HYDROcodone 325 MG/10 MG TAB PO PRN ×3 (17:32→23:12)
[2018-01-15] MEDS: ENOXAPARIN SODIUM 30 MG/0.3 ML SYRINGE SQ SCH ×3 (17:33→20:26)
[2018-01-15] MEDS: REMOVE OLD LIDOCAINE PATCH T-DERMAL SCH (21:00)
[2018-01-15 22:14] VITALS: BP 124/74; PULSE 95; RESP 16; TEMP 98.4; O2SAT 93
[2018-01-16 02:17] VITALS: BP 135/52; PULSE 108; RESP 16; TEMP 97.8; O2SAT 91
[2018-01-16 05:13] LABS: HEMATOCRIT 23.1 % (39.0-51.0)
[2018-01-16 05:29] VITALS: BP 129/72; PULSE 95; RESP 16; TEMP 98.9; O2SAT 91
[2018-01-16] MEDS: ACETAMINOPHEN/HYDROcodone 325 MG/10 MG TAB PO PRN ×5 (06:13→20:26)
[2018-01-16] MEDS: METHOCARBAMOL 500 MG TAB PO SCH ×3 (06:13→20:26)
[2018-01-16] MEDS: GENTAMICIN INJ 80 MG in SODIUM CHLORIDE 0.9% INJ 100 ML IV SCH (06:14)
[2018-01-16 08:00] VITALS: BP 124/83; PULSE 94; RESP 16; TEMP 97.3; O2SAT 91
[2018-01-16] MEDS: LACTULOSE SYRUP 20 GM/30 ML CUP PO SCH (09:00)
[2018-01-16] MEDS: GABAPENTIN 400 MG CAP PO SCH ×3 (09:13→18:01)
[2018-01-16] MEDS: MULTIVITAMINS/MINERALS THERAPEUTIC TAB PO SCH (09:13)
[2018-01-16] MEDS: ENOXAPARIN SODIUM 30 MG/0.3 ML SYRINGE SQ SCH ×2 (09:13→20:24)
[2018-01-16] MEDS: CALCIUM/VITAMIN D 250 MG/125 U TAB PO SCH ×3 (09:13→18:01)
[2018-01-16] MEDS: SODIUM CHLORIDE 0.9% FLUSH 10 ML FLUSH IV FLUSH SCH ×2 (09:14→21:00)
[2018-01-16] MEDS: DOCUSATE SODIUM 50 MG/SENNA 8.6 MG TAB PO SCH ×2 (09:14→20:25)
[2018-01-16] MEDS: LIDOCAINE HCL 5% PATCH T-DERMAL SCH (09:14)
[2018-01-16 12:00] VITALS: BP 149/91; PULSE 99; RESP 16; TEMP 97.8; O2SAT 97
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
--- NOTE | 2018-01-16 14:44 | PD.POD ---
Subjective Podiatric Problems s/p Right foot laceration closure and first met ORIF, with . Pt complains of bandages feeling tight, but otherwise he feels well. No n/v/f/h/c/ sob. Past Med/Surg/Social History Social History Smoking Status: Never Smoker Objective Vital Signs Vital Signs Date Time Temp Pulse Resp B/P (MAP) Pulse Ox O2 Delivery O2 Flow Rate FiO2 01/16/18 12:00 97.8 99 16 149/91 (110) 97 01/16/18 08:00 97.3 94 16 124/83 (97) 91 01/16/18 05:29 98.9 95 16 129/72 (91) 91 01/16/18 02:17 97.8 108 16 135/52 (79) 91 01/15/18 22:14 98.4 95 16 124/74 (91) 93 01/15/18 16:00 97.5 82 18 133/79 (97) 96 Coded Allergies: No Known Allergies (Unverified , 01/10/18) Physical Exam Remarks Right foot with all sutures intact, mild eschar at central wound but no opening , no drainage, mild edema. ROM not tested. Neuro is intact. Calf is supple and non tender to compression. Assessment & Plan A/P 1) s/p right foot laceration closure and 1st met ORIF - NWBing RLE -Cont to ice and elevate -Ok to d/c to rehab in AM, f/u with in 1 week -No dressing changes in rehab, only by physician Wilda Martinez DPM Jan 16, 2018 14:44
[2018-01-16 16:00] VITALS: BP 132/81; PULSE 97; RESP 16; TEMP 97.6; O2SAT 95
[2018-01-16] MEDS: IBUPROFEN 600 MG TAB PO PRN (18:01)
[2018-01-16 20:00] VITALS: BP 156/83; PULSE 98; RESP 18; TEMP 98.6; O2SAT 98
[2018-01-17] VITALS: BP 138/79; PULSE 92; RESP 18; TEMP 98.2; O2SAT 96
[2018-01-17] MEDS: ACETAMINOPHEN/HYDROcodone 325 MG/10 MG TAB PO PRN ×6 (03:58→20:23)
[2018-01-17 04:00] VITALS: BP 142/80; PULSE 96; RESP 18; TEMP 97.8; O2SAT 94
[2018-01-17] MEDS: METHOCARBAMOL 500 MG TAB PO SCH ×3 (05:06→21:49)
[2018-01-17] MEDS: LACTULOSE SYRUP 20 GM/30 ML CUP PO SCH (07:28)
[2018-01-17] MEDS: CALCIUM/VITAMIN D 250 MG/125 U TAB PO SCH ×3 (07:35→17:18)
[2018-01-17] MEDS: ENOXAPARIN SODIUM 30 MG/0.3 ML SYRINGE SQ SCH ×2 (07:35→20:23)
[2018-01-17] MEDS: MULTIVITAMINS/MINERALS THERAPEUTIC TAB PO SCH (07:35)
[2018-01-17] MEDS: GABAPENTIN 400 MG CAP PO SCH ×3 (07:35→17:18)
[2018-01-17] MEDS: DOCUSATE SODIUM 50 MG/SENNA 8.6 MG TAB PO SCH ×2 (07:35→20:23)
[2018-01-17] MEDS: LIDOCAINE HCL 5% PATCH T-DERMAL SCH (07:36)
[2018-01-17 08:00] VITALS: BP 140/79; PULSE 93; RESP 19; TEMP 98.1; O2SAT 94
[2018-01-17] MEDS: SODIUM CHLORIDE 0.9% FLUSH 10 ML FLUSH IV FLUSH SCH ×2 (08:17→20:23)
[2018-01-17] MEDS ORDERED: Lactulose Liq PO (09:18)
[2018-01-17] MEDS ORDERED: LIDO1ADH4 T-DERMAL (09:18)
[2018-01-17] MEDS ORDERED: MAGN30S PO (09:18)
[2018-01-17] MEDS ORDERED: OXYC1TAB63 PO (09:18)
[2018-01-17] MEDS ORDERED: PERI PO (09:18)
[2018-01-17] MEDS ORDERED: ENOX30P SQ (09:18)
[2018-01-17] MEDS ORDERED: THERM PO (09:18)
[2018-01-17] MEDS ORDERED: IBUP-232 PO (09:18)
[2018-01-17] MEDS ORDERED: CALC250 PO (09:18)
[2018-01-17] MEDS ORDERED: NEUR400C PO (09:18)
[2018-01-17] MEDS ORDERED: METH500T3 PO (09:18)
[2018-01-17] MEDS ORDERED: AMBI5TAB PO (09:18)
[2018-01-17] MEDS ORDERED: HYDR-3583 PO (09:18)
[2018-01-17 12:00] VITALS: BP 135/76; PULSE 95; RESP 19; TEMP 98; O2SAT 97
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
[2018-01-17 16:00] VITALS: BP 131/85; PULSE 106; RESP 20; TEMP 97.9; O2SAT 96
[2018-01-17 19:49] VITALS: BP 131/69; PULSE 101; RESP 18; TEMP 98.6; O2SAT 97
[2018-01-17] MEDS: REMOVE OLD LIDOCAINE PATCH T-DERMAL SCH (20:22)
[2018-01-18 00:59] VITALS: BP 130/75; PULSE 94; RESP 16; TEMP 98; O2SAT 94
[2018-01-18 01:00] VITALS: BP 130/75; PULSE 94; RESP 16; TEMP 98
[2018-01-18] MEDS: IBUPROFEN 600 MG TAB PO PRN ×2 (03:44→19:57)
[2018-01-18] MEDS: ACETAMINOPHEN/HYDROcodone 325 MG/10 MG TAB PO PRN ×4 (03:45→19:57)
[2018-01-18] MEDS: METHOCARBAMOL 500 MG TAB PO SCH ×3 (05:55→19:57)
[2018-01-18 08:00] VITALS: BP 125/73; PULSE 95; RESP 16; TEMP 98.4; O2SAT 96
[2018-01-18] MEDS: MULTIVITAMINS/MINERALS THERAPEUTIC TAB PO SCH (08:17)
[2018-01-18] MEDS: CALCIUM/VITAMIN D 250 MG/125 U TAB PO SCH ×3 (08:17→17:34)
[2018-01-18] MEDS: SODIUM CHLORIDE 0.9% FLUSH 10 ML FLUSH IV FLUSH SCH ×2 (08:18→19:58)
[2018-01-18] MEDS: DOCUSATE SODIUM 50 MG/SENNA 8.6 MG TAB PO SCH ×2 (08:18→19:57)
[2018-01-18] MEDS: GABAPENTIN 400 MG CAP PO SCH ×3 (08:18→17:34)
[2018-01-18] MEDS: LACTULOSE SYRUP 20 GM/30 ML CUP PO SCH (08:19)
[2018-01-18] MEDS: ENOXAPARIN SODIUM 30 MG/0.3 ML SYRINGE SQ SCH ×2 (08:20→19:56)
[2018-01-18] MEDS: LIDOCAINE HCL 5% PATCH T-DERMAL SCH (08:20)
[2018-01-18 12:00] VITALS: BP 123/80; PULSE 108; RESP 16; TEMP 98; O2SAT 95
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
[2018-01-18 16:00] VITALS: BP 135/71; PULSE 100; RESP 16; TEMP 97.8; O2SAT 95
[2018-01-18 19:25] VITALS: BP 131/73; PULSE 103; RESP 23; TEMP 99.7; O2SAT 96
[2018-01-18] MEDS: REMOVE OLD LIDOCAINE PATCH T-DERMAL SCH (19:58)
[2018-01-19] VITALS: BP 124/80; PULSE 97; RESP 18; TEMP 98.5; O2SAT 95
[2018-01-19] MEDS: ACETAMINOPHEN/HYDROcodone 325 MG/10 MG TAB PO PRN ×3 (01:54→07:55)
[2018-01-19] MEDS: METHOCARBAMOL 500 MG TAB PO SCH (04:54)
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
[2018-01-19] MEDS: SODIUM CHLORIDE 0.9% FLUSH 10 ML FLUSH IV FLUSH SCH (07:54)
[2018-01-19] MEDS: CALCIUM/VITAMIN D 250 MG/125 U TAB PO SCH (07:55)
[2018-01-19] MEDS: GABAPENTIN 400 MG CAP PO SCH (07:55)
[2018-01-19] MEDS: ENOXAPARIN SODIUM 30 MG/0.3 ML SYRINGE SQ SCH (07:55)
[2018-01-19] MEDS: DOCUSATE SODIUM 50 MG/SENNA 8.6 MG TAB PO SCH (07:55)
[2018-01-19] MEDS: MULTIVITAMINS/MINERALS THERAPEUTIC TAB PO SCH (07:55)
[2018-01-19] MEDS: IBUPROFEN 600 MG TAB PO PRN (07:55)
[2018-01-19] MEDS: LIDOCAINE HCL 5% PATCH T-DERMAL SCH (07:56)
[2018-01-19 08:00] VITALS: BP 128/79; PULSE 91; RESP 19; TEMP 98.2; O2SAT 96
[2018-01-19] MEDS: LACTULOSE SYRUP 20 GM/30 ML CUP PO SCH (08:03)
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
== END 2018-01-19 11:46 | DRG 956 ==
LOC: NEPI 15:36 → NEDA 16:39 → EDBD 16:39 → N06A 18:44
PROVIDERS: ADMIT Surgery; ATTEND Surgery
PROC: 0LBV0ZZ Excision of Right Foot Tendon, Open Approach (ICD-10-PCS; 2018-01-10)
PROC: 0RSMXZZ Reposition Left Elbow Joint, External Approach (ICD-10-PCS; 2018-01-10)
PROC: 0HQ1XZZ Repair Face Skin, External Approach (ICD-10-PCS; 2018-01-10)
PROC: 0QS906Z Reposition Left Femoral Shaft with Intramedullary Internal Fixation Device, Open Approach (ICD-10-PCS; principal; 2018-01-10 19:56)
PROC: 0LBV0ZZ Excision of Right Foot Tendon, Open Approach (ICD-10-PCS; 2018-01-12)
PROC: 30233N1 Transfusion of Nonautologous Red Blood Cells into Peripheral Vein, Percutaneous Approach (ICD-10-PCS; 2018-01-12)
PROC: 0PSQ04Z Reposition Left Metacarpal with Internal Fixation Device, Open Approach (ICD-10-PCS; 2018-01-13)
PROC: 0JDQ0ZZ Extraction of Right Foot Subcutaneous Tissue and Fascia, Open Approach (ICD-10-PCS; 2018-01-14)
PROC: 0QSN04Z Reposition Right Metatarsal with Internal Fixation Device, Open Approach (ICD-10-PCS; 2018-01-14)
PROC: 0JRQ0KZ Replacement of Right Foot Subcutaneous Tissue and Fascia with Nonautologous Tissue Substitute, Open Approach (ICD-10-PCS; 2018-01-14 08:08)
DX: S72.321A Displaced transverse fracture of shaft of right femur, initial encounter for closed fracture (principal); S27.322A Contusion of lung, bilateral, initial encounter; S22.31XA Fracture of one rib, right side, initial encounter for closed fracture; S92.311B Displaced fracture of first metatarsal bone, right foot, initial encounter for open fracture; S92.321B Displaced fracture of second metatarsal bone, right foot, initial encounter for open fracture; S06.0X1A Concussion with loss of consciousness of 30 minutes or less, initial encounter; S92.331B Displaced fracture of third metatarsal bone, right foot, initial encounter for open fracture; S62.232A Other displaced fracture of base of first metacarpal bone, left hand, initial encounter for closed fracture; S53.105A Unspecified dislocation of left ulnohumeral joint, initial encounter; S01.01XA Laceration without foreign body of scalp, initial encounter; S01.81XA Laceration without foreign body of other part of head, initial encounter; S82.54XA Nondisplaced fracture of medial malleolus of right tibia, initial encounter for closed fracture; S81.811A Laceration without foreign body, right lower leg, initial encounter; V23.4XXA Motorcycle driver injured in collision with car, pick-up truck or van in traffic accident, initial encounter; Y99.0 Civilian activity done for income or pay
CPT/HCPCS: 36430; 70450; 71045; 71260; 72125; 72170; 73130; 73140; 73200; 73551; 73552; 73620; 73630; 73700; 74177; 76000; 80048; 80053; 85014; 85018; 85025; 85610; 85730; 86850; 86900; 86901; 86920; 87015; 87070; 87102; 87116; 87176; 87205; 87206; 94150; A0431-QM-SH; A0436-QM-SH; C1713; C9113; J0131; J0330; J0690; J1100; J1580; J1650; J1885; J2250; J2270; J2370; J2405; J3010; J7030; J7120; L0150; L3808; P9016; Q9967

== ENCOUNTER 2018-01-30 08:03 | Observation (INO) | payer OTHER ==
[~2018-01-30] VITALS: Ht 172.7 cm; Wt 100.0 kg
[~2018-01-30 08:03] MED LIST changes: +CALC250 PO; -CEFAZOLIN INJ 2,000 MG in SODIUM CHLORIDE 0.9% INJ 100 ML IV SCH; +COMMODE 3-IN-11 MIS; +CYCL10TA PO; -DEXAMETHASONE SOD PHOS 4 MG/ML VIAL IV ONE; +ENOX40P SQ; +FAMO20TA2 PO; -GLYCOPYRROLATE 1 MG/5 ML SYRINGE IV PUSH ONE; +HYDR-3583 PO; +LIDO1ADH4 T-DERMAL; -LIDOCAINE HCL 1% PF 5 ML SYRINGE OTHER ONE; -MORPHINE SULFATE 4 MG/ML INJ IV PUSH ONE; +NEUR400C PO; -ONDANSETRON HCL 4 MG/2 ML VIAL IV ONE; +PERI PO; -PHENYLEPH/NS 1000 MCG/10 ML SYR IV ONE; -PROPOFOL 200 MG/20 ML AMP IV ONE; -SUCCINYLCHOLINE CHLORIDE 100 MG/5 ML SYRINGE IV PUSH ONE; +THERM PO; +TUB TRANSFER BO1 MIS; +WHEEMIS3; +[UNRECOGNIZED DRUG - OTHER]; +[UNRECOGNIZED DRUG - OTHER]; -ceFAZolin INJ 1,000 MG VIAL IV ONE; -ePHEDrine/NS 25 MG/5 ML SYRINGE IV ONE
[2018-01-30] MEDS ORDERED: POLY17S PO (08:19)
[2018-01-30] MEDS ORDERED: IBUP1TAB7 PO ×2 (08:19)
[2018-01-30] MEDS ORDERED: TYLE325T PO ×2 (08:19)
[2018-01-30] MEDS ORDERED: ENOX40IN SQ ×2 (08:19)
[2018-01-30] MEDS ORDERED: MULT1TAB46 PO (08:19)
[2018-01-30] MEDS ORDERED: FAMO20TA2 PO (08:19)
[2018-01-30] MEDS ORDERED: LIDO1PAD52 TOPICAL (08:19)
[2018-01-30] MEDS ORDERED: SHAR1SUP RECTAL ×2 (08:19)
[2018-01-30] MEDS ORDERED: SENN8.6T36 PO (08:19)
[2018-01-30] MEDS ORDERED: HYDR-3516 PO (08:19)
[2018-01-30] MEDS ORDERED: CYCL10TA PO (08:19)
[2018-01-30] MEDS ORDERED: CALC1TAB12 PO (08:19)
[2018-01-30] MEDS ORDERED: GABA400C5 PO (08:19)
[2018-01-30] MEDS ORDERED: LACTATED RINGER'S 1000 ML IV PRN (08:45)
[2018-01-30] MEDS ORDERED: METOPROLOL TARTRATE 25 MG TAB PO PRN (08:45)
[2018-01-30] MEDS ORDERED: POVIDONE IODINE 5% (ANTISEPSIS KIT) 4 APPLICATIONS EACH NARE PRN (08:45)
[2018-01-30] MEDS ORDERED: CHLORHEXIDINE GLUCONATE 2 % 1 PACK (2 CLOTHS) TOPICAL PRN (08:45)
[2018-01-30] MEDS ORDERED: SODIUM CHLORID 0.9% 500 ML IV PRN (08:45)
[2018-01-30] MEDS ORDERED: ceFAZolin 2 GM PREMIX 50 ML ONE (08:55)
[2018-01-30] MEDS ORDERED: VANCOMYCIN 1 GM/200 ML PREMIX ON-CALL IV SCH (09:00)
[2018-01-30] MEDS ORDERED: ceFAZolin 2 GM in NS 100 ML IV SCH (09:00)
[2018-01-30] MEDS ORDERED: GENTAMICIN SULFATE 80 MG/2 ML VIAL ONE (09:03)
[2018-01-30] MEDS ORDERED: ceFAZolin INJ 1,000 MG VIAL ONE (09:03)
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
[2018-01-30] MEDS ORDERED: MORPHINE SULFATE 4 MG/ML INJ IV PUSH PRN (11:15)
[2018-01-30] MEDS ORDERED: Post-op Orders (for Pharmacy) XX ONE (11:15)
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
[2018-01-30] MEDS ORDERED: *MEPERIDINE 25 MG INJ VIAL PERIprocedural Use ONLY ONE (11:36)
[2018-01-30] MEDS ORDERED: MIDAZOLAM HCL 2 MG/2 ML VIAL ONE (11:42)
[2018-01-30] MEDS ORDERED: *morphine SULFATE 8 MG/ML PERIprocedure ONLY ONE ×2 (11:59→12:08)
[2018-01-30] MEDS ORDERED: *HYDROmorphone PF 0.5 MG/0.5 ML PERIprocedure ONLY ONE ×4 (12:20→12:57)
[2018-01-30] MEDS ORDERED: DO NOT ADM ANY ANTICOAGULANT DRUGS PRN (12:45)
[2018-01-30] MEDS: CALCIUM/VITAMIN D 250 MG/125 U TAB PO SCH ×2 (13:00→17:19)
[2018-01-30] MEDS: ceFAZolin 2 GM PREMIX 50 ML IV SCH ×2 (14:00→20:31)
[2018-01-30] MEDS: GABAPENTIN 400 MG CAP PO SCH ×2 (14:57→17:35)
[2018-01-30] MEDS: CYCLOBENZAPRINE HCL 10 MG TAB PO SCH ×2 (14:57→17:35)
[2018-01-30] MEDS: MORPHINE SULFATE 4 MG/ML INJ IV PUSH PRN (14:59)
--- NOTE | 2018-01-30 15:31 | RADRPT ---
EXAM DATE/TIME: 01/30/2018 10:33 [facility] COMPARISON: ELBOW LEFT LIMITED (AP & LAT), January 29, 2018, 13:20. INDICATIONS : ORIF left elbow. MEDICAL HISTORY : Unobtainable. SURGICAL HISTORY : Unobtainable. ENCOUNTER: Subsequent ACUITY: 3 weeks PAIN SCORE: Non-responsive. LOCATION: Left elbow. FINDINGS: AP and crosstable lateral views of the elbow demonstrate interval reduction of the posterior elbow di slocation with external pinning. There is near-anatomic alignment and no significant new acute fractu res are noted. CONCLUSION: 1. Left elbow ORIF, as above. Guillermo Puckett MD on January 30, 2018 at 15:27 Board Certified Radiologist. This report was verified electronically.
[2018-01-30 15:46] VITALS: BP 129/73; PULSE 104; RESP 20; TEMP 98.5; O2SAT 93
[2018-01-30] MEDS ORDERED: LACTATED RINGER'S 1000 ML INJ 1,000 ML IV ONE (16:25)
[2018-01-30] MEDS ORDERED: PROPOFOL 200 MG/20 ML AMP IV ONE (16:25)
[2018-01-30] MEDS ORDERED: GLYCOPYRROLATE 1 MG/5 ML SYRINGE IV PUSH ONE (16:25)
[2018-01-30] MEDS ORDERED: LIDOCAINE HCL 1% PF 5 ML SYRINGE OTHER ONE (16:25)
[2018-01-30] MEDS ORDERED: DEXAMETHASONE SOD PHOS 4 MG/ML VIAL IV ONE (16:25)
[2018-01-30] MEDS ORDERED: ONDANSETRON HCL 4 MG/2 ML VIAL IV PUSH ONE (16:25)
[2018-01-30] MEDS ORDERED: KETOROLAC TROMETHAMINE 30 MG/ML (IVP) VIAL IV PUSH ONE (16:25)
[2018-01-30] MEDS ORDERED: ROCURONIUM INJ 50 MG/5 ML SYRINGE IV PUSH ONE (16:25)
[2018-01-30] MEDS ORDERED: NEOSTIGMINE 5 MG/5 ML SYRINGE IV PUSH ONE (16:25)
[2018-01-30] MEDS: ACETAMINOPHEN/HYDROcodone 325 MG/10 MG TAB PO PRN ×3 (17:22→23:41)
[2018-01-30 20:00] VITALS: BP 138/82; PULSE 109; RESP 18; TEMP 97.6; O2SAT 96
[2018-01-30] MEDS: SENNOSIDES 8.6 MG TAB PO SCH (20:31)
[2018-01-30] MEDS: FAMOTIDINE 20 MG TAB PO SCH (20:31)
[2018-01-31 00:01] VITALS: BP 125/71; PULSE 100; RESP 18; TEMP 98.3; O2SAT 95
[2018-01-31] MEDS: MORPHINE SULFATE 4 MG/ML INJ IV PUSH PRN ×2 (02:19→05:52)
[2018-01-31] MEDS: ACETAMINOPHEN/HYDROcodone 325 MG/10 MG TAB PO PRN ×5 (03:47→15:30)
[2018-01-31 04:00] VITALS: BP 132/78; PULSE 101; RESP 18; TEMP 98.2; O2SAT 94
[2018-01-31] MEDS: ceFAZolin 2 GM PREMIX 50 ML IV SCH (05:53)
--- NOTE | 2018-01-31 06:37 | PD.ORT.PN ---
Subjective Subjective Remarks POD 1 s/p Open Reduction with pinning and ligamentous repair of left elbow states significant pain overnight. reports that pain tolerable now that pain meds have kicked in Objective Vitals Vital Signs Date Time Temp Pulse Resp B/P (MAP) Pulse Ox O2 Delivery O2 Flow Rate FiO2 01/31/18 04:00 98.2 101 18 132/78 (96) 94 01/31/18 00:01 98.3 100 18 125/71 (89) 95 01/30/18 20:00 97.6 109 18 138/82 (100) 96 01/30/18 15:46 98.5 104 20 129/73 (91) 93 01/30/18 14:25 97.6 98 16 119/67 (84) 96 Room Air 01/30/18 14:00 95 16 118/65 (82) 95 Room Air 01/30/18 13:30 90 16 120/66 (84) 95 Room Air 01/30/18 13:00 97.6 87 16 124/69 (87) 100 Nasal Cannula 2 01/30/18 12:45 86 16 130/77 (94) 98 Nasal Cannula 2 01/30/18 12:30 88 15 131/78 (95) 97 Nasal Cannula 2 01/30/18 12:15 87 15 134/85 (101) 96 Nasal Cannula 2 01/30/18 12:13 16 01/30/18 12:13 16 01/30/18 12:04 16 01/30/18 12:00 89 15 131/86 (101) 95 Nasal Cannula 2 01/30/18 11:45 92 15 137/86 (103) 96 Nasal Cannula 2 01/30/18 11:35 97.8 89 15 129/84 (99) 96 Nasal Cannula 2 01/30/18 08:46 98.8 108 20 123/87 (99) 97 I/O 01/30/18 01/30/18 01/30/18 01/31/18 01/31/18 01/31/18 07:00 15:00 23:00 07:00 15:00 23:00 Intake Total 1050 ml 600 ml Output Total 425 ml 1700 ml Balance 625 ml -1100 ml Intake Oral 600 ml IV Total 50 ml Other 1000 ml Output Urine Total 400 ml 1700 ml Estimated Blood Loss 25 ml # Bowel Movements 0 Objective Remarks LUE: +long arm splint and thumb spica splint. NVI to median/ulnar/radial nerve Assessment & Plan Assessment and Plan 1) Left Elbow open reduction with pinning and ligamentous repair - POD 1 -NWB -maintain splint at all times -plan for DC back to [facility] today -f/u with Cher or [facility] in 2 weeks Evans Hough/Well Control Instructor [facility] January 31, 2018 06:37
[2018-01-31] MEDS ORDERED: HYDR-3583 PO (06:41)
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
[2018-01-31 07:48] VITALS: BP 127/83; PULSE 92; RESP 17; TEMP 97.3; O2SAT 97
[2018-01-31] MEDS: CALCIUM/VITAMIN D 250 MG/125 U TAB PO SCH ×2 (08:43→11:23)
[2018-01-31] MEDS: CYCLOBENZAPRINE HCL 10 MG TAB PO SCH ×2 (08:43→11:23)
[2018-01-31] MEDS: FAMOTIDINE 20 MG TAB PO SCH (08:43)
[2018-01-31] MEDS: SENNOSIDES 8.6 MG TAB PO SCH (08:43)
[2018-01-31] MEDS: GABAPENTIN 400 MG CAP PO SCH ×2 (08:43→11:23)
[2018-01-31] MEDS ORDERED: POLYETHYLENE GLYCOL 17 GM PKG PO SCH (09:00)
[2018-01-31] MEDS ORDERED: ENOXAPARIN SODIUM 40 MG/0.4 ML SYRINGE SQ SCH (10:00)
[2018-01-31 11:23] VITALS: BP 133/62; PULSE 98; RESP 18; TEMP 98; O2SAT 95
[2018-01-31 15:40] VITALS: BP 110/58; PULSE 103; RESP 17; TEMP 97.9; O2SAT 92
[2018-02-05] MEDS ORDERED: [UNRECOGNIZED DRUG - OTHER] (12:13)
[2018-02-05] MEDS ORDERED: [UNRECOGNIZED DRUG - OTHER] (12:13)
== END 2018-01-31 16:26 ==
LOC: HOR 08:03 → INTOOBSV 08:09 → MERGE 08:09 → HSDI 08:09 → N06B 14:48
PROVIDERS: ADMIT Orthopaedic Surgery Orthopaedic Trauma; ATTEND Orthopaedic Surgery Orthopaedic Trauma
DX: S53.105A Unspecified dislocation of left ulnohumeral joint, initial encounter (principal); V29.9XXA Motorcycle rider (driver) (passenger) injured in unspecified traffic accident, initial encounter
CPT/HCPCS: 01740; 24615; 24999; 96365; 96372; 96375; 96376; 97163; G0378; 73070; 76000; 94150; C1713; G8987-GP; G8988-GP; J0690; J1100; J1170; J1580; J1650; J1885; J2175; J2250; J2270; J2405; J2710; J3010; J3370; J7120

== ENCOUNTER 2018-02-05 15:27 | Inpatient (IN) | payer OTHER ==
[~2018-02-05] VITALS: Ht 172.7 cm; Wt 100.0 kg
[~2018-02-05 15:27] MED LIST changes: +CALC1TAB12 PO; +ENOX40IN SQ; +GABA400C5 PO; +HYDR-3516 PO; +IBUP1TAB7 PO; +LIDO1PAD52 TOPICAL; +MULT1TAB46 PO; +POLY17S PO; +SENN8.6T36 PO; +SHAR1SUP RECTAL; +TYLE325T PO; +[UNRECOGNIZED DRUG - OTHER]; +[UNRECOGNIZED DRUG - OTHER]
[2018-02-05] MEDS ORDERED: ACETAMINOPHEN 1000 MG/100 ML 100 ML IV ONE (15:54)
[2018-02-05] MEDS ORDERED: FAMOTIDINE 20 MG/2 ML VIAL ONE (15:56)
[2018-02-05] MEDS ORDERED: CHLORHEXIDINE GLUCONATE 2 % 1 PACK (2 CLOTHS) TOPICAL PRN (16:00)
[2018-02-05] MEDS ORDERED: SODIUM CHLORID 0.9% 500 ML IV PRN (16:00)
[2018-02-05] MEDS ORDERED: LACTATED RINGER'S 1000 ML IV PRN (16:00)
[2018-02-05] MEDS ORDERED: METOPROLOL TARTRATE 25 MG TAB PO PRN (16:00)
[2018-02-05] MEDS ORDERED: POVIDONE IODINE 5% (ANTISEPSIS KIT) 4 APPLICATIONS EACH NARE PRN (16:00)
[2018-02-05] MEDS ORDERED: BACITRACIN TOP OINT 15 GM TUBE ONE (16:02)
[2018-02-05] MEDS ORDERED: BUPIVACAINE HCL PF 0.5% 30 ML VIAL ONE (16:02)
[2018-02-05] MEDS ORDERED: BUPIVACAINE/EPINEPHRINE 0.25% 50 ML VIAL ONE (17:00)
[2018-02-05] MEDS ORDERED: GENTAMICIN SULFATE 80 MG/2 ML VIAL ONE (17:00)
[2018-02-05] MEDS ORDERED: ceFAZolin INJ 1,000 MG VIAL IV ONE (18:10)
--- NOTE | 2018-02-05 18:37 | HHI.PR ---
Immediate Post Op Note Procedure Date: February 05, 2018 Pre Op Diagnosis: Wound right foot/ankle, status post degloving injury right foot Post Op Diagnosis: same Surgeon: Ria Tavares DPDash Key Ringer(s): Staff Procedure: Irrigation and debridement of wounds right foot and ankle with application of graft and wound vac Findings: Consistent with diagnosis. Necrotic wounds noted to medial right foot and medial ankle areas. There was noted to be slough to posterior and lateral heel, but no full- thickness wounds at this time. Wounds measured as follows: .2cm x 2cm x 0.2cm depth to medial right ankle, down to level of viable subcutaneous fat 14.2 cm x 4.2 cm x 0.5cm depth to medial right foot, down to level of viable subcutaneous fat Excisional debridement of nonviable necrotic and fibrotic tissue with #15 blade , curette, and rongeur with versajet down to level of viable bleeding subcutaneous fat layer. Local anesthesia to wound areas with 10mL 0.25% marcaine with epinephrine. Irrigation with normal saline. Amniox graft placed over both wounds and sutured in place with 3-0 chromic gut, followed by nonadherent adaptic dressing and small granufoam wound vac dressing set at 125mmHg medium continuous setting. Short posterior splint applied with heel offloaded. Skin temperature to entire flap warm and with capillary refill at end of procedure. Additional Information: No tourniquet utilized. 2g ancef IV preop Nonweightbearing right foot in splint. Continue wound vac right foot/ankle at 125mmHg medium continuous setting Plan to change vac monday and assess wound right foot. May reapply wound vac , to be determined based on appearance of wound/graft. Ok with patient to be returned to rehab. I can see patient on 9th floor if sent up before monday. Complications: None Specimen(s) removed: None Estimated blood loss: Minimal Anesthesia: General, Local (10mL 0.25% marcaine with epinephrine) Drains: Other (wound vac right foot/ankle) IVF Tourniquet time (min at mmHg) n/a Patient to: PACU Patient Condition: Good Implant/Devices: SEE IMPLANT LOG (if applicable) Date/Time of Procedure: SEE SURGICAL CARE RECORD Ria Tavares DPM February 05, 2018 18:37
[2018-02-05] MEDS ORDERED: MORPHINE SULFATE 4 MG/ML INJ ONE (18:44)
[2018-02-05] MEDS ORDERED: SENNOSIDES 8.6 MG TAB PO PRN (19:15)
[2018-02-05] MEDS ORDERED: MAGNESIUM HYDROXIDE SUSP 30 ML CUP PO PRN (19:15)
[2018-02-05] MEDS ORDERED: MORPHINE SULFATE 4 MG/ML INJ IV PUSH PRN (19:15)
[2018-02-05] MEDS ORDERED: BISACODYL 10 MG SUPP RECTAL PRN (19:15)
[2018-02-05] MEDS ORDERED: ACETAMINOPHEN 325 MG TAB PO PRN (19:15)
[2018-02-05] MEDS ORDERED: SODIUM CHLORIDE 0.9% FLUSH 10 ML FLUSH IV FLUSH PRN (19:15)
[2018-02-05] MEDS ORDERED: NALOXONE HCL 0.4 MG/ML AMP IV PUSH PRN (19:15)
[2018-02-05] MEDS ORDERED: LACTULOSE SYRUP 20 GM/30 ML CUP PO PRN (19:15)
[2018-02-05] MEDS ORDERED: ONDANSETRON ODT 4 MG TAB PO PRN (19:30)
[2018-02-05] MEDS ORDERED: DO NOT ADM ANY ANTICOAGULANT DRUGS PRN (19:30)
[2018-02-05] MEDS ORDERED: CYCLOBENZAPRINE HCL 10 MG TAB PO PRN (19:45)
[2018-02-05 20:00] VITALS: BP 130/74; PULSE 92; RESP 20; TEMP 97.5; O2SAT 95
[2018-02-05] MEDS: DOCUSATE SODIUM 50 MG/SENNA 8.6 MG TAB PO SCH (21:19)
[2018-02-05] MEDS: FAMOTIDINE 20 MG TAB PO SCH (21:19)
[2018-02-05] MEDS: SODIUM CHLORIDE 0.9% FLUSH 10 ML FLUSH IV FLUSH SCH (21:21)
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
[2018-02-06] VITALS: BP 135/68; PULSE 99; RESP 17; TEMP 98; O2SAT 94
[2018-02-06 04:00] VITALS: BP 134/78; PULSE 106; RESP 17; TEMP 98.1; O2SAT 94
[2018-02-06] MEDS: ACETAMINOPHEN/HYDROcodone 325 MG/10 MG TAB PO PRN ×3 (05:06→12:47)
[2018-02-06 06:41] LABS: AUTOMATED NEUTROPHIL # 6.7 TH/MM3 (1.8-7.7); BASOPHIL % 0.1 % (0.0-2.0); HEMOGLOBIN 10.9 GM/DL (13.0-17.0); LYMPH % 13.7 % (9.0-44.0); LYMPHOCYTE # 1.1 TH/MM3 (1.0-4.8); MEAN CELL VOLUME 82.2 FL (80.0-100.0); MEAN CORPUSCULAR HEMOGLOBIN 27.1 PG (27.0-34.0); MONO % 4.8 % (0.0-8.0); MONOCYTE # 0.4 TH/MM3 (0-0.9); NEUT % 81.4 % (16.0-70.0); PLATELET COUNT 402 TH/MM3 (150-450); RED BLOOD COUNT 4.01 MIL/MM3 (4.50-5.90); RED CELL DISTRIBUTION WIDTH 13.5 % (11.6-17.2); WHITE BLOOD COUNT 8.2 TH/MM3 (4.0-11.0)
[2018-02-06] MEDS ORDERED: MORPHINE SULFATE 4 MG/ML INJ IV PUSH PRN (07:15)
[2018-02-06 07:43] LABS: ALBUMIN 3.3 GM/DL (3.4-5.0); BLOOD UREA NITROGEN 15 MG/DL (7-18); CHLORIDE 103 MEQ/L (98-107); CREATININE 0.85 MG/DL (0.60-1.30); GLOMERULAR FILTRATION RATE 107 ML/MIN (>89); GLUCOSE,RANDOM 110 MG/DL (74-106); SODIUM (NA) 140 MEQ/L (136-145)
[2018-02-06 07:44] LABS: ALT (GPT) 75 U/L (12-78); AST (GOT) 25 U/L (15-37)
[2018-02-06 07:46] LABS: ALKALINE PHOSPHATASE 149 U/L (45-117); TOTAL BILIRUBIN ADULT 0.4 MG/DL (0.2-1.0); TOTAL PROTEIN 7.6 GM/DL (6.4-8.2)
[2018-02-06 08:00] VITALS: BP 142/86; PULSE 110; RESP 18; TEMP 98; O2SAT 96
[2018-02-06] MEDS: FAMOTIDINE 20 MG TAB PO SCH (08:37)
[2018-02-06] MEDS: CALCIUM/VITAMIN D 250 MG/125 U TAB PO SCH ×2 (08:37→12:47)
[2018-02-06] MEDS: GABAPENTIN 400 MG CAP PO SCH ×2 (08:37→12:47)
[2018-02-06] MEDS: DOCUSATE SODIUM 50 MG/SENNA 8.6 MG TAB PO SCH (08:37)
[2018-02-06] MEDS: SODIUM CHLORIDE 0.9% FLUSH 10 ML FLUSH IV FLUSH SCH (09:00)
[2018-02-06] MEDS ORDERED: MULTIVITAMIN TAB PO SCH (09:00)
[2018-02-06] MEDS ORDERED: MIDAZOLAM HCL 2 MG/2 ML VIAL ONE (09:31)
[2018-02-06 12:00] VITALS: BP 134/78; PULSE 101; RESP 17; TEMP 97.6; O2SAT 98
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
== END 2018-02-06 15:20 | DRG 578 ==
LOC: HSDC 15:27 → HPAC 19:20 → N07B 20:24
PROVIDERS: ADMIT Hospitalist; ATTEND Hospitalist
PROC: 0YBK0ZZ Excision of Right Ankle Region, Open Approach (ICD-10-PCS; 2018-02-05)
PROC: 0JBQ0ZZ Excision of Right Foot Subcutaneous Tissue and Fascia, Open Approach (ICD-10-PCS; 2018-02-05)
PROC: 0JBQ0ZZ Excision of Right Foot Subcutaneous Tissue and Fascia, Open Approach (ICD-10-PCS; 2018-02-05)
PROC: 0HRMXK4 Replacement of Right Foot Skin with Nonautologous Tissue Substitute, Partial Thickness, External Approach (ICD-10-PCS; principal; 2018-02-05 16:52)
DX: S91.301A Unspecified open wound, right foot, initial encounter (principal); J45.909 Unspecified asthma, uncomplicated; V29.40XA Motorcycle driver injured in collision with unspecified motor vehicles in traffic accident, initial encounter; Y92.410 Unspecified street and highway as the place of occurrence of the external cause; Y99.0 Civilian activity done for income or pay
CPT/HCPCS: 80053; 85025; J0131; J0690; J1580; J2250; J2270; J3010

== ENCOUNTER → 2018-02-16 | Day surgery (SDC) | payer OTHER ==
[~2018-02-16] VITALS: Ht 172.7 cm; Wt 97.5 kg
[~2018-02-16] MED LIST changes: +*morphine SULFATE 10 MG/ML PERIprocedure ONLY ONE; +ACETAMINOPHEN/HYDROcodone 325 MG/10 MG TAB PO PRN; +BACT800T5 PO; -CALC250 PO; +CHLORHEXIDINE GLUCONATE 2 % 1 PACK (2 CLOTHS) TOPICAL PRN; +CHLORHEXIDINE GLUCONATE 4% SOLN 120 ML BTL TOPICAL SCH; +CIPR-9 PO; -CYCL10TA PO; +DO NOT ADM ANY ANTICOAGULANT DRUGS PRN; +DOCU1CAP39 PO; -ENOX40IN SQ; -ENOX40P SQ; +GENTAMICIN SULFATE 80 MG/2 ML VIAL ONE; +GLYCOPYRROLATE 1 MG/5 ML SYRINGE IV PUSH ONE; -HYDR-3516 PO; -IBUP1TAB7 PO; +KETOROLAC TROMETHAMINE 30 MG/ML (IVP) VIAL IV PUSH ONE; +LACTATED RINGER'S 1000 ML IV PRN; -LIDO1ADH4 T-DERMAL; -LIDO1PAD52 TOPICAL; +LIDOCAINE HCL 1% PF 5 ML SYRINGE OTHER ONE; +METOPROLOL TARTRATE 25 MG TAB PO PRN; +MIDAZOLAM HCL 2 MG/2 ML VIAL ONE; +MORPHINE SULFATE 4 MG/ML INJ IV PUSH PRN; +NEOSTIGMINE 5 MG/5 ML SYRINGE IV PUSH ONE; -NEUR400C PO; +ONDANSETRON HCL 4 MG/2 ML VIAL IV PUSH ONE; +ONDANSETRON HCL 4 MG/2 ML VIAL IV PUSH PRN; +ONDANSETRON ODT 4 MG TAB PO PRN; -PERI PO; -POLY17S PO; +POVIDONE IODINE 5% (ANTISEPSIS KIT) 4 APPLICATIONS EACH NARE PRN; +PROPOFOL 200 MG/20 ML AMP IV ONE; +ROCURONIUM INJ 50 MG/5 ML SYRINGE IV PUSH ONE; -SENN8.6T36 PO; +SODIUM CHLORID 0.9% 500 ML IV PRN; +SODIUM CHLORIDE 0.9% FLUSH 10 ML FLUSH IV FLUSH PRN; +SODIUM CHLORIDE 0.9% FLUSH 10 ML FLUSH IV FLUSH SCH; -THERM PO; +VANCOMYCIN 1 GM/200 ML PREMIX ON-CALL IV SCH; +XARE10TA PO; +ceFAZolin 2 GM PREMIX 50 ML IV SCH; +ceFAZolin INJ 1,000 MG VIAL ONE
--- NOTE | 2018-02-16 11:31 | PD.OP ---
cc: Conner Whitman MD Operative Report Date of Surgery: February 16, 2018 Preoperative Diagnosis: Unstable left elbow dislocation Postoperative Diagnosis: Procedure: Manipulation of left elbow under anesthesia, application of external fixation left elbow, closed reduction of left elbow dislocation Anesthesia: General Surgeon: Conner Whitman Certified Art Therapist(s): DELIA Chawla PA-C The surgical procedure was assisted by my physician regional administrative assistant. My P.A. presence was necessary throughout this case for the manipulation and positioning of the surgical extremity. My P.A. was assisting me throughout the duration of this procedure. The skill set of a physician regional administrative assistant was medically necessary to complete this procedure. During the surgical case the surgical services director was working at the back table and the physician regional administrative assistant was directly assisting me. Operation and Findings: Bruno previously sustained an unstable left elbow dislocation treated with ligamentous repair and pinning of the elbow joint. Patient also had multiple other injuries. Patient was subsequently using his left arm some to help with assist in transfer. Postoperative x-rays revealed mild displacement of the elbow reduction. The pin had moved as well. Informed consent was obtained preoperatively Areli was marked. He is brought to operating. He was given IV sedation and general anesthesia. He was placed in lateral decubitus position. He received IV antibiotic's. Timeout procedure was performed. Left arm was prepped with alcohol followed Hibiclens and draped in usual sterile fashion. Procedure began with application of external fixator. A 6 cm incision was made over the lateral aspect of the distal humerus. Subcutaneous tissue was dissected Bovie. The lateral border of the humerus was identified. Care was taken to avoid injury to the radial nerve. The cortex of the bone was directly visualized. Pin sites were predrilled. 2 pins were placed in the distal humerus. 2 additional pins were placed into the proximal ulna shaft. An external fixator construct was created. At this point the the pin inside the elbow joint was removed. The elbow joint was gently manipulated under fluoroscopy. Patient's elbow was relatively stable with a range of motion from 45 to 110. At this point the elbow was held in a well reduced position. The external fixator was tightened hold reduction. Fluoroscopy confirmed appropriate reduction of the elbow joint. Incision was closed with 3-0 PDS and 3-0 nylon. Patient was awakened and transferred to recovery in stable condition. Conner Whitman MD February 16, 2018 11:31
[2018-02-16 13:48] VITALS: BP 113/75; PULSE 86; RESP 18; TEMP 98; O2SAT 96
--- NOTE | 2018-02-16 21:09 | RADRPT ---
EXAM DATE: 02/16/2018 8:51 PM EDT AGE/SEX: 27 years / Male INDICATIONS: ORIF Left Elbow done in operating room. CLINICAL DATA: This is the patient's subsequent encounter. Patient reports that signs and symptoms h ave been present for 1 day and indicates a pain score of Nonresponsive. MEDICAL/SURGICAL HISTORY: Non-responsive. Non-responsive. COMPARISON: [facility] – [place], ELBOW LEFT LIMITED (AP & LAT), 01/30/2018. . FINDINGS: 2 images of the elbow recorded digitally in the operating room using C-arm during placement of orthop edic hardware. CONCLUSION: Intraoperative images. Electronically signed by: Jovanni Xie MD 02/16/2018 9:08 PM EDT
== END | disposition home or self-care (01) ==
LOC: HSDC 06:17
PROVIDERS: ATTEND Orthopaedic Surgery Orthopaedic Trauma
DX: S53.105A Unspecified dislocation of left ulnohumeral joint, initial encounter (principal)
CPT/HCPCS: 01730; 20690; 24605; 73070; 76000; C1713; J0690; J1580; J1885; J2250; J2270; J2405; J2710; J3010; J3370; J7120

== ENCOUNTER 2018-03-02 | Emergency (ER) | payer OTHER ==
[~2018-03-02] MED LIST changes: -*morphine SULFATE 10 MG/ML PERIprocedure ONLY ONE; -ACETAMINOPHEN/HYDROcodone 325 MG/10 MG TAB PO PRN; -CHLORHEXIDINE GLUCONATE 2 % 1 PACK (2 CLOTHS) TOPICAL PRN; -CHLORHEXIDINE GLUCONATE 4% SOLN 120 ML BTL TOPICAL SCH; -DO NOT ADM ANY ANTICOAGULANT DRUGS PRN; -GENTAMICIN SULFATE 80 MG/2 ML VIAL ONE; -GLYCOPYRROLATE 1 MG/5 ML SYRINGE IV PUSH ONE; -KETOROLAC TROMETHAMINE 30 MG/ML (IVP) VIAL IV PUSH ONE; -LACTATED RINGER'S 1000 ML IV PRN; -LIDOCAINE HCL 1% PF 5 ML SYRINGE OTHER ONE; -METOPROLOL TARTRATE 25 MG TAB PO PRN; -MIDAZOLAM HCL 2 MG/2 ML VIAL ONE; -MORPHINE SULFATE 4 MG/ML INJ IV PUSH PRN; -NEOSTIGMINE 5 MG/5 ML SYRINGE IV PUSH ONE; -ONDANSETRON HCL 4 MG/2 ML VIAL IV PUSH ONE; -ONDANSETRON HCL 4 MG/2 ML VIAL IV PUSH PRN; -ONDANSETRON ODT 4 MG TAB PO PRN; -POVIDONE IODINE 5% (ANTISEPSIS KIT) 4 APPLICATIONS EACH NARE PRN; -PROPOFOL 200 MG/20 ML AMP IV ONE; -ROCURONIUM INJ 50 MG/5 ML SYRINGE IV PUSH ONE; -SODIUM CHLORID 0.9% 500 ML IV PRN; -SODIUM CHLORIDE 0.9% FLUSH 10 ML FLUSH IV FLUSH PRN; -SODIUM CHLORIDE 0.9% FLUSH 10 ML FLUSH IV FLUSH SCH; -VANCOMYCIN 1 GM/200 ML PREMIX ON-CALL IV SCH; -ceFAZolin 2 GM PREMIX 50 ML IV SCH; -ceFAZolin INJ 1,000 MG VIAL ONE
[2018-03-02 00:17] VITALS: BP 161/89; PULSE 104; RESP 19; TEMP 98.2; O2SAT 99
[2018-03-02 00:39] VITALS: BP 137/88; PULSE 98; RESP 18; O2SAT 97
[2018-03-02] MEDS ORDERED: FAMOTIDINE 20 MG/2 ML VIAL IV PUSH ONE (00:45)
[2018-03-02] MEDS ORDERED: LIDOCAINE VISCOUS 2% SOLN 15 ML UDC PO ONE (00:45)
[2018-03-02] MEDS ORDERED: SODIUM CHLORIDE 0.9% FLUSH 10 ML FLUSH IV FLUSH PRN (00:45)
[2018-03-02] MEDS ORDERED: PANTOPRAZOLE SODIUM 40 MG VIAL IVP ONE (00:45)
[2018-03-02] MEDS ORDERED: ALUMINUM/MAGNESIUM/SIMETH 30 ML CUP PO ONE (00:45)
[2018-03-02 01:04] LABS: AUTOMATED NEUTROPHIL # 8.5 TH/MM3 (1.8-7.7); BASOPHIL % 0.1 % (0.0-2.0); EOSINOPHIL # 0.1 TH/MM3 (0-0.4); EOSINOPHIL % 1.1 % (0.0-4.0); HEMATOCRIT 36.9 % (39.0-51.0); HEMOGLOBIN 11.8 GM/DL (13.0-17.0); LYMPH % 23.5 % (9.0-44.0); MEAN CELL VOLUME 79.9 FL (80.0-100.0); MEAN CORPUSCULAR HEMOGLOBIN 25.6 PG (27.0-34.0); MEAN PLATELET VOLUME 8.2 FL (7.0-11.0); MONO % 8.8 % (0.0-8.0); MONOCYTE # 1.1 TH/MM3 (0-0.9); NEUT % 66.5 % (16.0-70.0); PLATELET COUNT 316 TH/MM3 (150-450); RED BLOOD COUNT 4.61 MIL/MM3 (4.50-5.90); WHITE BLOOD COUNT 12.8 TH/MM3 (4.0-11.0)
[2018-03-02 01:23] LABS: ALBUMIN 3.7 GM/DL (3.4-5.0); ALT (GPT) 29 U/L (12-78); AST (GOT) 14 U/L (15-37); BICARBONATE 23.6 MEQ/L (21.0-32.0); BLOOD UREA NITROGEN 17 MG/DL (7-18); CHLORIDE 109 MEQ/L (98-107); CREATININE 1.32 MG/DL (0.60-1.30); GLOMERULAR FILTRATION RATE 64 ML/MIN (>89); GLUCOSE,RANDOM 99 MG/DL (74-106); SODIUM (NA) 145 MEQ/L (136-145)
[2018-03-02 01:25] LABS: ALKALINE PHOSPHATASE 132 U/L (45-117); TOTAL BILIRUBIN ADULT 0.1 MG/DL (0.2-1.0); TOTAL PROTEIN 7.2 GM/DL (6.4-8.2)
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
[2018-03-02] MEDS ORDERED: SODIUM CHLOR 0.9% 1000 ML INJ 1,000 ML IV ONE (01:30)
[2018-03-02] MEDS ORDERED: DIATRIZOATE MEGLUM/DIATRIZOATE SOD 9 ML CUP PO ONE (01:30)
[2018-03-02] MEDS ORDERED: MORPHINE SULFATE 4 MG/ML INJ IV PUSH ONE (01:30)
[2018-03-02 02:44] VITALS: BP 139/93; PULSE 82; RESP 18; TEMP 98.1; O2SAT 99
[2018-03-02 02:50] LABS: BILIRUBIN, URINE NEG (NEG); BLOOD, URINE NEG (NEG); GLUCOSE,URINE NEG (NEG); KETONE, URINE NEG (NEG); MUCUS URINE FEW /lpf (OCC); NITRITE,URINE NEG (NEG); URINE COLOR LIGHT-YELLOW (YELLW/STRAW); URINE LEUKOCYTE ESTERASE NEG (NEG)
[2018-03-02] MEDS ORDERED: HYDROmorphone HCL PF 2 MG/ML VIAL IV PUSH ONE (03:30)
[2018-03-02] MEDS ORDERED: IOHEXOL 350 MG/ML 10 ML VIAL (for RAD DIAG) IVCONTRAST ONE (03:36)
--- NOTE | 2018-03-02 04:06 | RADRPT ---
EXAM DATE: 03/02/2018 3:37 AM EDT AGE/SEX: 27 years / Male INDICATIONS: Right lower quadrant pain. CLINICAL DATA: This is the patient's initial encounter. Patient reports that signs and symptoms have been present for 1 day and indicates a pain score of 8/10. MEDICAL/SURGICAL HISTORY: None. None. ORAL CONTRAST: Prescribed oral contrast ingested. RADIATION DOSE: 11.48 CTDI (mGy) [place] [facility] [place]/2018. . TECHNIQUE: Multiple contiguous axial images were obtained through the abdomen and pelvis following b olus infusion of 100 ml Omnipaque 350 (iohexol) nonionic water-soluble contrast as a single exam do se. Prescribed oral contrast ingested. Using automated exposure control and adjustment of the mA and /or kV according to patient size, the radiation dose was kept as low as reasonably achievable to obta in optimal diagnostic quality images. FINDINGS: Lung bases are clear. No acute findings in the liver, spleen, adrenals, kidneys or pancreas. No calci fied gallstones or biliary ductal dilatation. The appendix is normal. No obstructive uropathy. No free fluid or free air. No acute bony abnormaliti es. Previous imer fixation right femur. CONCLUSION: 1. No acute findings. Appendix normal. Electronically signed by: Jordan Ramirez MD 03/02/2018 4:04 AM EDT
[2018-03-02 04:19] VITALS: RESP 16
[2018-03-02 04:55] VITALS: BP 135/78; TEMP 98
== END 2018-03-02 05:15 | disposition home or self-care (01) ==
LOC: NEPE
DX: R10.13 Epigastric pain (principal)
CPT/HCPCS: 74177; 80053; 81001; 83690; 85025; 96361; 96374; 96375; 99284; C9113; J1170; J2270; J7030; Q9963; Q9967